=== PATIENT | female | born 1935 | race Caucasian/White ===

== ENCOUNTER 2017-03-20 09:18 | Outpatient (CLI) | payer MEDICARE, OTHER ==
[2017-03-20 09:56] LABS: BASOPHILS % (AUTO) 0.7 %; EOSINOPHILS # (AUTO) 0.2 10^3/uL (0.0-0.7); EOSINOPHILS % (AUTO) 3.8 %; HCT - HEMATOCRIT 38.1 % (37.0-47.0); HGB - HEMOGLOBIN 12.9 g/dL (12.0-16.0); LYMPHOCYTES # (AUTO) 1.4 10^3/uL (1.5-3.5); MEAN CORPUSCULAR HEMOGLOBIN 29.4 pg (27.0-31.0); MEAN CORPUSCULAR HGB CONC 33.8 g/dL (32.0-36.0); MEAN CORPUSCULAR VOLUME 86.9 fL (81.0-99.0); MEAN PLATELET VOLUME 8.5 fL (7.9-10.8); MONOCYTES # (AUTO) 0.3 10^3/uL (0.0-1.0); MONOCYTES % (AUTO) 6.8 %; NEUTROPHILS # (AUTO) 3.1 10^3/uL (1.5-6.6); NEUTROPHILS % (AUTO) 61.7 %; RED BLOOD COUNT 4.38 10^6/uL (4.20-5.40); RED CELL DISTRIBUTION WIDTH 14.8 % (12.0-15.0)
[2017-03-20 10:16] LABS: ALBUMIN/GLOBULIN RATIO 1.7 (1.0-2.2); BILIRUBIN,TOTAL 0.8 mg/dL (0.2-1.0); BUN - BLOOD UREA NITROGEN 18 mg/dL (6-20); CALCIUM 9.2 mg/dL (8.5-10.3); CARBON DIOXIDE - CO2 32 mmol/L (21-32); CHLORIDE 103 mmol/L (101-111); CHOL/HDL RATIO 3.1 (<4.4); CHOLESTEROL 244 mg/dL; CREATININE 0.6 mg/dL (0.4-1.0); GFR - MDRD 95 (>89); GLUCOSE 101 mg/dL (70-100); HDL CHOLESTEROL 80 mg/dL; LDL/HDL RATIO 1.9 (<4.4); SODIUM 141 mmol/L (135-145); TOTAL PROTEIN 6.7 g/dL (6.7-8.2); TRIGLYCERIDES 62 mg/dL; VLDL CHOLESTEROL 12 mg/dL
[2017-03-20 10:17] LABS: HEMOGLOBIN A1C 0.56 g/dL
[2017-03-20 10:17] LABS: BILIRUBIN,URINE NEGATIVE (NEGATIVE); PH,URINE 7.5 PH (5.0-7.5)
[2017-03-20 10:26] LABS: UR CULTURE IF IND NOT INDICATED
[2017-03-20 11:21] LABS: FOLATE 19.73 ng/mL (5.90 - >24.8)
[2017-03-20 11:29] LABS: THYROID STIMULATING HORMONE 0.94 uIU/mL (0.34-5.60)
[2017-03-22 10:48] LABS: HOMOCYSTEINE 9.6 umol/L (<10.4)
== END 2017-03-20 09:19 | disposition home or self-care (01) ==
LOC: LAB 09:18
PROVIDERS: ATTEND Internal Medicine
DX: R20.0 Anesthesia of skin (principal); I10 Essential (primary) hypertension; E78.5 Hyperlipidemia, unspecified; R73.9 Hyperglycemia, unspecified; I48.0 Paroxysmal atrial fibrillation; Z79.899 Other long term (current) drug therapy
CPT/HCPCS: 36415; 80053; 80061; 81001; 82607; 82746; 83036; 83090; 83921; 84443; 85025; 87086

== ENCOUNTER 2017-05-07 11:14 | Outpatient (CLI) | payer MEDICARE, OTHER ==
--- NOTE | 2017-05-08 09:46 | Ultrasound Report ---
ULTRASOUND OF THE NECK: 05/07/2017 CLINICAL HISTORY: This is an 81-year-old female who has a visible and palpable lump at the top of he r left jaw line at the base of the left ear. TECHNIQUE: Real-time scanning was performed with labor relations representative static images obtained. FINDINGS: A 3.24 x 1.69 x 2.95 cm oval-shaped solid mass is noted in the area of concern with associ ated mild vascular flow. Primary consideration for the finding is an enlarged malignant lymph node. Recommend this mass undergo needle aspiration and/or core biopsy under ultrasound guidance for furth er evaluation. Specimen should be placed in RPMI for flow cytometry and formalin for core biopsies a nd cytospin/Carbowax solution for needle aspiration biopsies. IMPRESSION: A 3.24 X 1.69 X 2.95 CM OVAL-SHAPED SOLID MASS IS NOTED AT THE TOP OF THE LEFT JAWLINE A T THE BASE OF THE LEFT EAR. THIS MASS HAS CHARACTERISTICS CONSISTENT WITH A MALIGNANT LYMPH NODE, EI THER LYMPHOMA OR METASTATIC SQUAMOUS CELL CARCINOMA. RECOMMEND NEEDLE ASPIRATION AND/OR CORE BIOPSY UNDER ULTRASOUND GUIDANCE. JOB #: [id number] EXT JOB #:[id number]
== END 2017-05-07 11:15 | disposition home or self-care (01) ==
LOC: DI 11:14
PROVIDERS: ATTEND Internal Medicine
DX: R22.9 Localized swelling, mass and lump, unspecified (principal)
CPT/HCPCS: 76536

== ENCOUNTER 2017-05-08 09:39 | Outpatient (CLI) | payer MEDICARE, OTHER ==
[2017-05-08 10:25] LABS: CALCIUM 9.5 mg/dL (8.5-10.3); CREATININE 0.6 mg/dL (0.4-1.0); POTASSIUM 4.1 mmol/L (3.5-5.0)
== END 2017-05-08 09:40 | disposition home or self-care (01) ==
LOC: LAB 09:39
PROVIDERS: ATTEND Specialist
DX: I35.0 Nonrheumatic aortic (valve) stenosis (principal); I47.1 Supraventricular tachycardia; I34.0 Nonrheumatic mitral (valve) insufficiency; I10 Essential (primary) hypertension; E78.5 Hyperlipidemia, unspecified; I77.89 Other specified disorders of arteries and arterioles; I49.3 Ventricular premature depolarization; R09.89 Other specified symptoms and signs involving the circulatory and respiratory systems; I47.2 Ventricular tachycardia
CPT/HCPCS: 36415; 80048; 83735

== ENCOUNTER 2018-01-08 09:57 | Outpatient (CLI) | payer MEDICARE, OTHER ==
[2018-01-08 10:42] LABS: ALBUMIN 4.2 g/dL (3.2-5.5); ALBUMIN/GLOBULIN RATIO 1.6 (1.0-2.2); ALKALINE PHOSPHATASE 51 IU/L (42-121); ALT ALANINE AMINOTRANSFERASE 21 IU/L (10-60); AST ASPARTATE AMINOTRANSFERASE 28 IU/L (10-42); BUN - BLOOD UREA NITROGEN 18 mg/dL (6-20); CALCIUM 9.2 mg/dL (8.5-10.3); CARBON DIOXIDE - CO2 28 mmol/L (21-32); CHLORIDE 105 mmol/L (101-111); CHOL/HDL RATIO 3.2 (<4.4); CHOLESTEROL 237 mg/dL; CREATININE 0.6 mg/dL (0.4-1.0); GFR - MDRD 95 (>89); GLUCOSE 105 mg/dL (70-100); HDL CHOLESTEROL 75 mg/dL; LDL CHOLESTEROL,CALCULATED 150 mg/dL; SODIUM 140 mmol/L (135-145); TOTAL PROTEIN 6.9 g/dL (6.7-8.2); VLDL CHOLESTEROL 12 mg/dL
== END 2018-01-08 09:58 | disposition home or self-care (01) ==
LOC: LAB 09:57
PROVIDERS: ATTEND Specialist
DX: E78.5 Hyperlipidemia, unspecified (principal); I47.1 Supraventricular tachycardia
CPT/HCPCS: 36415; 80053; 80061; 83721; 83735

== ENCOUNTER 2018-10-17 08:55 | Outpatient (CLI) | payer MEDICARE, OTHER ==
[2018-10-17 09:20] LABS: BASOPHILS # (AUTO) 0.1 10^3/uL (0.0-0.1); BASOPHILS % (AUTO) 0.9 %; EOSINOPHILS # (AUTO) 0.6 10^3/uL (0.0-0.7); EOSINOPHILS % (AUTO) 9.4 %; HGB - HEMOGLOBIN 13.1 g/dL (12.0-16.0); LYMPHOCYTES # (AUTO) 1.5 10^3/uL (1.5-3.5); LYMPHOCYTES % (AUTO) 24.3 %; MEAN CORPUSCULAR HEMOGLOBIN 29.7 pg (27.0-31.0); MEAN CORPUSCULAR HGB CONC 33.9 g/dL (32.0-36.0); MEAN CORPUSCULAR VOLUME 87.6 fL (81.0-99.0); MEAN PLATELET VOLUME 8.1 fL (7.9-10.8); MONOCYTES # (AUTO) 0.4 10^3/uL (0.0-1.0); MONOCYTES % (AUTO) 6.9 %; NEUTROPHILS # (AUTO) 3.6 10^3/uL (1.5-6.6); NEUTROPHILS % (AUTO) 58.5 %; PLT - PLATELET COUNT 249 10^3/uL (130-450); RED BLOOD COUNT 4.41 10^6/uL (4.20-5.40); RED CELL DISTRIBUTION WIDTH 14.2 % (12.0-15.0); WHITE BLOOD COUNT 6.2 x10^3/uL (4.8-10.8)
[2018-10-17 09:45] LABS: ALBUMIN 3.8 g/dL (3.2-5.5); ALBUMIN/GLOBULIN RATIO 1.3 (1.0-2.2); ALKALINE PHOSPHATASE 68 IU/L (42-121); ALT ALANINE AMINOTRANSFERASE 17 IU/L (10-60); AST ASPARTATE AMINOTRANSFERASE 23 IU/L (10-42); BILIRUBIN,TOTAL 0.8 mg/dL (0.2-1.0); BUN - BLOOD UREA NITROGEN 19 mg/dL (6-20); CARBON DIOXIDE - CO2 30 mmol/L (21-32); CHLORIDE 103 mmol/L (101-111); CHOL/HDL RATIO 3.2 (<4.4); CHOLESTEROL 225 mg/dL; CREATININE 0.7 mg/dL (0.4-1.0); GFR - MDRD 80 (>89); GLUCOSE 105 mg/dL (70-100); HB2 TOTAL 13.7 g/dL; HDL CHOLESTEROL 71 mg/dL; HEMOGLOBIN A1C 0.55 g/dL; HEMOGLOBIN A1C % 5.8 % (4.6-6.2); LDL CHOLESTEROL,CALCULATED 143 mg/dL; SODIUM 139 mmol/L (135-145); TOTAL PROTEIN 6.8 g/dL (6.7-8.2); VLDL CHOLESTEROL 11 mg/dL
[2018-10-17 10:21] LABS: BILIRUBIN,URINE NEGATIVE (NEGATIVE); GLUCOSE, URINE (UA) NEGATIVE (NEGATIVE); KETONES,URINE (UA) NEGATIVE (NEGATIVE); LEUKOCYTE ESTERASE, URINE MODERATE (NEGATIVE); NITRITE,URINE POSITIVE (NEGATIVE); OCCULT BLOOD,URINE TRACE-INTA (NEGATIVE); PH,URINE 6.5 PH (5.0-7.5); PROTEIN,URINE NEGATIVE (NEGATIVE); UROBILINOGEN,URINE 0.2 (NORMAL) E.U./dL (NORMAL)
[2018-10-17 10:23] LABS: CLARITY,URINE HAZY (CLEAR)
[2018-10-17 10:36] LABS: THYROID STIMULATING HORMONE 0.65 uIU/mL (0.34-5.60)
[2018-10-17 10:45] LABS: BACTERIA,URINE Many /HPF (None Seen); RBC,URINE 0-5 /HPF (0-5); SQUAMOUS EPITHELIAL CELL,UR FEW Squamous (<= Few)
== END 2018-10-17 08:56 | disposition home or self-care (01) ==
LOC: LAB 08:55
PROVIDERS: ATTEND Internal Medicine
DX: R53.83 Other fatigue (principal); E78.5 Hyperlipidemia, unspecified; R20.2 Paresthesia of skin; Z79.899 Other long term (current) drug therapy; E78.2 Mixed hyperlipidemia; I10 Essential (primary) hypertension; I25.10 Atherosclerotic heart disease of native coronary artery without angina pectoris; I47.1 Supraventricular tachycardia; R73.9 Hyperglycemia, unspecified
CPT/HCPCS: 36415; 80053; 80061; 81001; 82607; 83036; 83721; 83735; 84443; 85025; 87077; 87086; 87181

== ENCOUNTER 2018-10-30 12:23 | Outpatient (CLI) | payer MEDICARE, OTHER ==
--- NOTE | 2018-10-30 13:37 | XRAY Report ---
Reason: FOUSH 10/29/17,TENDER DISTAL ULNA Procedure Date: 10/30/2018 Accession Number: [id number] / [id number] Procedure: XR - Forearm LT CPT Code: FULL RESULT: EXAM: LEFT FOREARM RADIOGRAPHY EXAM DATE: 10/30/2018 01:14 PM. CLINICAL HISTORY: Fall on outstretched hand 10/29/17, tender distal ulna. COMPARISON: None. TECHNIQUE: 2 views. FINDINGS: Bones: Normal. No fractures or bone lesions. Joints: Normal. No effusions or subluxations in the visualized wrist or elbow joints. Soft Tissues: Normal. No soft tissue swelling. IMPRESSION: No fracture or dislocation. RADIA
--- NOTE | 2018-10-30 13:52 | XRAY Report ---
Reason: FOUSH 10/29/17,TENDER DISTAL ULNA Procedure Date: 10/30/2018 Accession Number: [id number] / [id number] Procedure: XR - Hand 3 View LT CPT Code: FULL RESULT: EXAM: LEFT HAND RADIOGRAPHY EXAM DATE: 10/30/2018 01:14 PM. CLINICAL HISTORY: FOOSH 10/29/17,tender distal ulna. COMPARISON: None. TECHNIQUE: 3 views. FINDINGS: Bones: Normal. No fractures or bone lesions. Joints: Normal. No subluxations. Soft Tissues: Normal. No soft tissue swelling. IMPRESSION: No fracture or dislocation is seen. RADIA
== END 2018-10-30 12:24 | disposition home or self-care (01) ==
LOC: DI 12:23
PROVIDERS: ATTEND Family Medicine
DX: M25.532 Pain in left wrist (principal); M79.632 Pain in left forearm

== ENCOUNTER 2019-03-18 09:29 | Outpatient (CLI) | payer MEDICARE, OTHER ==
[2019-03-18 10:06] LABS: ALBUMIN/GLOBULIN RATIO 1.5 (1.0-2.2); CALCIUM 9.3 mg/dL (8.5-10.3); CREATININE 0.6 mg/dL (0.4-1.0); TOTAL PROTEIN 6.7 g/dL (6.7-8.2)
== END 2019-03-18 09:30 | disposition home or self-care (01) ==
LOC: LAB 09:29
PROVIDERS: ATTEND Specialist
DX: I42.9 Cardiomyopathy, unspecified (principal)
CPT/HCPCS: 36415; 80053

== ENCOUNTER 2019-09-22 09:00 | Outpatient (CLI) | payer MEDICARE, OTHER ==
[2019-09-22 09:46] LABS: CALCIUM 9.3 mg/dL (8.5-10.3); CREATININE 0.6 mg/dL (0.4-1.0); MAGNESIUM 2.1 mg/dL (1.7-2.8)
[2019-09-22 10:47] LABS: THYROID STIMULATING HORMONE 0.58 uIU/mL (0.34-5.60)
[2019-09-22 10:56] LABS: HB2 TOTAL 13.7 g/dL; HEMOGLOBIN A1C 0.59 g/dL; HEMOGLOBIN A1C % 6.1 % (4.6-6.2)
== END 2019-09-22 09:01 | disposition home or self-care (01) ==
LOC: LAB 09:00
PROVIDERS: ATTEND Specialist
DX: I47.1 Supraventricular tachycardia (principal); I10 Essential (primary) hypertension; R73.9 Hyperglycemia, unspecified; R20.0 Anesthesia of skin; R68.89 Other general symptoms and signs
CPT/HCPCS: 36415; 80048; 82607; 83036; 83735; 84443

== ENCOUNTER 2020-03-03 09:03 | Outpatient (CLI) | payer MEDICARE, OTHER ==
[2020-03-03 09:29] LABS: CREATININE 0.7 mg/dL (0.4-1.0)
== END 2020-03-03 09:04 | disposition home or self-care (01) ==
LOC: LAB 09:03
PROVIDERS: ATTEND Internal Medicine
DX: Z79.899 Other long term (current) drug therapy (principal)
CPT/HCPCS: 36415; 82565

== ENCOUNTER 2020-03-23 09:11 | Outpatient (CLI) | payer MEDICARE, OTHER ==
[2020-03-23 10:12] LABS: ALBUMIN/GLOBULIN RATIO 1.5 (1.0-2.2); BILIRUBIN,TOTAL 0.8 mg/dL (0.2-1.0); CALCIUM 9.1 mg/dL (8.5-10.3); CREATININE 0.7 mg/dL (0.4-1.0); MAGNESIUM 2.2 mg/dL (1.7-2.8); TOTAL PROTEIN 6.7 g/dL (6.7-8.2)
== END 2020-03-23 09:12 | disposition home or self-care (01) ==
LOC: LAB 09:11
PROVIDERS: ATTEND Specialist
DX: I42.9 Cardiomyopathy, unspecified (principal); I10 Essential (primary) hypertension; I49.3 Ventricular premature depolarization
CPT/HCPCS: 36415; 80053; 83735

== ENCOUNTER 2020-06-23 15:02 | Emergency (ER) | payer MEDICARE, OTHER ==
[2020-06-23 15:38] LABS: BASOPHILS % (AUTO) 0.4 %; EOSINOPHILS % (AUTO) 0.2 %; HGB - HEMOGLOBIN 12.7 g/dL (12.0-16.0); LYMPHOCYTES # (AUTO) 1.2 10^3/uL (1.5-3.5); LYMPHOCYTES % (AUTO) 13.4 %; MEAN CORPUSCULAR HEMOGLOBIN 29.8 pg (27.0-31.0); MEAN CORPUSCULAR HGB CONC 32.8 g/dL (32.0-36.0); MEAN CORPUSCULAR VOLUME 90.8 fL (81.0-99.0); MEAN PLATELET VOLUME 10.6 fL (7.9-10.8); MONOCYTES % (AUTO) 10.9 %; NEUTROPHILS # (AUTO) 6.7 10^3/uL (1.5-6.6); NEUTROPHILS % (AUTO) 74.9 %; PLT - PLATELET COUNT 208 10^3/uL (130-450); RED BLOOD COUNT 4.26 10^6/uL (4.20-5.40); RED CELL DISTRIBUTION WIDTH 13.6 % (12.0-15.0); WHITE BLOOD COUNT 8.9 x10^3/uL (4.8-10.8)
[2020-06-23 15:49] LABS: ALBUMIN 3.9 g/dL (3.2-5.5); ALBUMIN/GLOBULIN RATIO 1.3 (1.0-2.2); BILIRUBIN,TOTAL 0.9 mg/dL (0.2-1.0); CALCIUM 9.1 mg/dL (8.5-10.3); CREATININE 0.6 mg/dL (0.4-1.0)
--- NOTE | 2020-06-23 16:12 | ED Physician Documentation ---
PD HPI DYSPNEA - Stated complaint Stated Complaint: MUSCLE SPASM/RAPID PULSE - Chief complaint Chief Complaint: Cardiac - History obtained from History obtained from: Patient - Additional information Additional information: Patient comes emergency department complaining of pain in her neck that today is on the left side. She states she has been having tightness and pain for several days now and that it sometimes is on both sides and sometimes 1 side or the other. She states that it seems to be right over her sternocleidomastoid muscle, which she names by name, and that it feels painful when she turns her head from side to side. No pain in the spine itself. Patient also notes some muscular type pain in her upper back. No chest pain or shortness of breath. She states that sometimes the pain sensation goes down her arm. Patient has noticed that her heart seems to be beating faster than usual today. She does not know what kind of pacemaker she has, though it is for refractory atrial f ibrillation. Patient states that she has had many many cardioversions over time, followed by a failed ablation, and finally, pacemaker placement. She states that within the last week, she did have the batteries replaced on her pacer. No other complaints at this time. Review of Systems Ten Systems: 10 systems reviewed and negative Constitutional: reports: Reviewed and negative Eyes: reports: Reviewed and negative Ears: reports: Reviewed and negative Nose: reports: Reviewed and negative Throat: reports: Reviewed and negative Cardiac: reports: Reviewed and negative. denies: Chest pain / pressure Respiratory: reports: Reviewed and negative. denies: Dyspnea GI: reports: Reviewed and negative : reports: Reviewed and negative Skin: reports: Reviewed and negative Musculoskeletal: reports: Neck pain Neurologic: reports: Reviewed and negative Psychiatric: reports: Reviewed and negative Endocrine: reports: Reviewed and negative Immunocompromised: reports: Reviewed and negative PD PAST MEDICAL HISTORY - Present Medications Home Medications: Ambulatory Orders Medication Instructions Recorded Confirmed Cyclobenzaprine [Flexeril] 10 mg PO TID PRN #20 tablet 06/23/20 HYDROcod/ACETAM 5/325 [Poneto 5/325] 1 - 2 ea PO Q6H PRN #15 tablet 06/23/20 - Allergies Allergies/Adverse Reactions: Allergies Allergy/AdvReac Type Severity Reaction Status Date / Time Penicillins Allergy Unknown Verified 06/23/20 15:22 PD ED PE NORMAL - Vitals Vital signs reviewed: Yes - General General: Alert and oriented X 3, No acute distress, Well developed/nourished - HEENT HEENT: Atraumatic, PERRL, EOMI - Neck Neck: Supple, no meningeal sign, Other (tenderness over the L SCM, with tightness. Some tenderness over L trapezius.) - Cardiac Cardiac: RRR (tachycardic), Strong equal pulses, Other (2/6 systolic murmur) - Respiratory Respiratory: No respiratory distress, Clear bilaterally - Abdomen Abdomen: Soft, Non tender, Non distended - Back Back: No CVA TTP - Derm Derm: Normal color, Warm and dry, No rash - Extremities Extremities: No deformity, No edema, No calf tenderness / cord - Neuro Neuro: Alert and oriented X 3 - Psych Psych: Normal mood, Normal affect Results - Vitals Vitals: Oxygen O2 Source Room air - EKG (time done) 1517 Rate: Rate (enter#) (110) Rhythm: Paced - Labs Labs: Laboratory Tests 06/23/20 06/23/20 06/23/20 15:30 15:30 15:30 WBC 8.9 RBC 4.26 Hgb 12.7 Hct 38.7 MCV 90.8 MCH 29.8 MCHC 32.8 RDW 13.6 Plt Count 208 MPV 10.6 Neut # (Auto) 6.7 H Lymph # (Auto) 1.2 L [place] # (Auto) 1.0 Eos # (Auto) 0.0 Baso # (Auto) 0.0 Absolute Nucleated RBC 0.00 Nucleated RBC % 0.0 Sodium 137 Potassium 3.9 Chloride 99 L Carbon Dioxide 29 Anion Gap 9.0 BUN 21 H Creatinine 0.6 Estimated GFR (MDRD) 95 Glucose 144 H Calcium 9.1 Total Bilirubin 0.9 AST 18 ALT 15 Alkaline Phosphatase 62 Troponin I High Sens 87.7 H* Total Protein 7.0 Albumin 3.9 Globulin 3.1 Albumin/Globulin Ratio 1.3 Lipase 28 06/23/20 17:20 WBC RBC Hgb Hct MCV MCH MCHC RDW Plt Count MPV Neut # (Auto) Lymph # (Auto) [place] # (Auto) Eos # (Auto) Baso # (Auto) Absolute Nucleated RBC Nucleated RBC % Sodium Potassium Chloride Carbon Dioxide Anion Gap BUN Creatinine Estimated GFR (MDRD) Glucose Calcium Total Bilirubin AST ALT Alkaline Phosphatase Troponin I High Sens 86.5 H* Total Protein Albumin Globulin Albumin/Globulin Ratio Lipase - Rads (name of study) CXR Radiology: Final report received, EMP read indepedently, See rad report (cardiomegaly, pacer in place, ) PD MEDICAL DECISION MAKING - ED course Complexity details: reviewed old records, reviewed results, re-evaluated patient, considered differential, d/w patient, d/w family ED course: The pt had only musculoskeletal complaints, and was without chest pain or dyspnea. She was very well-appearing. Her rhythm was clearly paced, but tachycardic in the 110's, though this did improve after pt received symptomatic treatment. EKG showed a paced, mildly tachycardic rhythm. Labs were unremarkable, except for for a significantly elevated troponin. I discussed the case with Dr. Rajput, who was licensing and registration director for the pt's director of premium seat sales's group. We discussed the findings, including troponin and the paced tachycardia, and he reviewed the pt's chart. He felt that the patient's pacemaker was most likely functioning properly, but recommended an interrogation to be sure. We discussed the elevated troponin, and he stated that based on the pt's history, both here and in their records, he did not feel that this represented an SD. Dr. Rajput recommended a repeat troponin, after which, if not found to be more elevated from the original level, the pt could be cleared from this standpoint. I discussed this with the pt, who was feeling much better, and whose heart rate had normalized, and she was agreeable to the plan. Interrogation revealed a properly functioning pacemaker, with an upper heart rate limit of 130, and repeat troponin was slightly lower than the first. I felt pt was stable for d/c home. We have discussed home management of the symptoms, as well as the need for follow up and the usual indications for return. Departure - Departure Disposition: 01 Home, Self Care Clinical Impression: Neck muscle spasm, Tachycardia Condition: Stable Instructions: ED Spasm Neck No Injury Prescriptions: Cyclobenzaprine [Flexeril] 10 mg PO TID PRN #20 tablet PRN Reason: Spasms HYDROcod/ACETAM 5/325 [Poneto 5/325] 1 - 2 ea PO Q6H PRN #15 tablet PRN Reason: Pain Comments: Your case has been discussed with Dr. Dumont, the on-call director of premium seat sales from Dr. Chacko's group. We have reviewed your Paced heart rate and your labs. At his request, we did interrogate your pacemaker and it does appear to be functioning properly according to the settings. As we have discussed, there is a range of 60 to 130 bpm which is considered within the pacemakers range of normal function. Patient your cardiac enzymes were elevated, and this was also discussed with Dr. Dumont. He felt that given the lack of typical symptoms, that this was unlikely to be meaningful. We repeated the level 2 see if it was rising significantly and it is actually very slightly lower than the first level. At this point in time, it does not appear you have had a heart attack. If you develop chest pain or shortness of breath, you will need to return to the emergency department. Please take the muscle relaxer and your pain medication as needed. You may follow-up with your primary care physician if you continue to have neck spasms. Discharge Date/Time: 06/23/20 18:35
--- NOTE | 2020-06-23 16:17 | XRAY Report ---
PROCEDURE: Chest 1 View X-Ray INDICATIONS: Chest pain TECHNIQUE: One view of the chest was acquired. COMPARISON: None FINDINGS: Surgical changes and devices: EKG leads project over the chest. 2-lead left chest wall cardiac pacing device noted. Lungs and pleura: There is a spherical approximately 1.4 cm density projecting over the inferior righ t lung, corresponding approximately in position to an area of overlap of the 2 EKG leads in this loca tion. This could represent artifact or potentially a nipple shadow, although a lung nodule cannot be excluded. The lungs are otherwise clear. No pleural effusion or pneumothorax. Mediastinum: Mediastinal contours appear normal. Heart size is enlarged. Bones and chest wall: No s uspicious bony lesions. Overlying soft tissues appear unremarkable. IMPRESSION: Enlarged heart size with 2-lead cardiac pacing device in place. Possible inferior right lung lung nodule. Repeat examination without EKG leads obscuring this region is recommended, which can be performed on a nonemergent outpatient basis. Correlation with any prior outside studies also be helpful if available. Alternatively, CT exam could be obtained. Reviewed by: Jorge Russell MD on 06/23/2020 4:15 PM PDT Approved by: Jorge Russell MD on 06/23/2020 4:15 PM PDT Station ID: [id number]
[2020-06-23] MEDS ORDERED: HYDROmorphone 1 MG/ML CARPUJECT IVP STA (16:52)
[2020-06-23] MEDS ORDERED: KETOROLAC 30 MG/ML VIAL IVP STA (16:52)
[2020-06-23 18:12] VITALS: BP 129/84
== END 2020-06-23 18:35 | disposition home or self-care (01) ==
LOC: ED 15:02
DX: M62.838 Other muscle spasm (principal); M54.2 Cervicalgia; M54.6 Pain in thoracic spine; R00.0 Tachycardia, unspecified; R79.89 Other specified abnormal findings of blood chemistry; Z95.0 Presence of cardiac pacemaker
CPT/HCPCS: 36415; 71045; 80053; 83690; 84484; 85025; 93005; 96374; 99284; J1170

== ENCOUNTER 2021-01-10 09:38 | Outpatient (CLI) | payer MEDICARE, OTHER ==
[2021-01-10 09:57] LABS: BASOPHILS % (AUTO) 0.8 %; EOSINOPHILS # (AUTO) 0.2 10^3/uL (0.0-0.7); EOSINOPHILS % (AUTO) 3.2 %; HCT - HEMATOCRIT 34.7 % (37.0-47.0); HGB - HEMOGLOBIN 10.9 g/dL (12.0-16.0); LYMPHOCYTES # (AUTO) 1.3 10^3/uL (1.5-3.5); LYMPHOCYTES % (AUTO) 24.3 %; MEAN CORPUSCULAR HEMOGLOBIN 30.4 pg (27.0-31.0); MEAN CORPUSCULAR HGB CONC 31.4 g/dL (32.0-36.0); MEAN CORPUSCULAR VOLUME 96.9 fL (81.0-99.0); MEAN PLATELET VOLUME 11.4 fL (7.9-10.8); MONOCYTES # (AUTO) 0.4 10^3/uL (0.0-1.0); MONOCYTES % (AUTO) 8.2 %; NEUTROPHILS # (AUTO) 3.3 10^3/uL (1.5-6.6); NEUTROPHILS % (AUTO) 63.3 %; PLT - PLATELET COUNT 184 10^3/uL (130-450); RED BLOOD COUNT 3.58 10^6/uL (4.20-5.40); RED CELL DISTRIBUTION WIDTH 15.4 % (12.0-15.0); WHITE BLOOD COUNT 5.3 x10^3/uL (4.8-10.8)
[2021-01-10 10:09] LABS: ALBUMIN 4.5 g/dL (3.2-5.5); ALBUMIN/GLOBULIN RATIO 1.9 (1.0-2.2); BILIRUBIN,TOTAL 0.9 mg/dL (0.2-1.0); CALCIUM 9.7 mg/dL (8.5-10.3); CREATININE 0.5 mg/dL (0.4-1.0); TOTAL PROTEIN 6.9 g/dL (6.7-8.2)
[2021-01-10 10:26] LABS: THYROID STIMULATING HORMONE 0.67 uIU/mL (0.34-5.60)
[2021-01-10 12:49] LABS: ESTIMATED AVERAGE GLUCOSE 85 mg/dL (70-100); HEMOGLOBIN A1c% 4.6 % (4.27-6.07)
== END 2021-01-10 09:39 | disposition home or self-care (01) ==
LOC: LAB 09:38
PROVIDERS: ATTEND Specialist
DX: I10 Essential (primary) hypertension (principal); R53.1 Weakness; R53.83 Other fatigue; R20.8 Other disturbances of skin sensation; C50.919 Malignant neoplasm of unspecified site of unspecified female breast; C80.1 Malignant (primary) neoplasm, unspecified; C44.91 Basal cell carcinoma of skin, unspecified; R73.9 Hyperglycemia, unspecified; E55.9 Vitamin D deficiency, unspecified
CPT/HCPCS: 36415; 80053; 82306; 82607; 83036; 83735; 84443; 85025

== ENCOUNTER 2021-01-25 12:00 | Outpatient (CLI) | payer MEDICARE, OTHER ==
--- NOTE | 2021-01-25 14:10 | CT Report ---
PROCEDURE: LUMBAR SPINE WO INDICATIONS: LEG WEAKNESS TECHNIQUE: Noncontrast 3 mm thick sections acquired from the T12 level to the sacrum. Sagittal and coronal refo rmats were constructed. For radiation dose reduction, the following was used: automated exposure co ntrol, adjustment of mA and/or kV according to patient size. COMPARISON: None. FINDINGS: Image quality: Excellent. Bones: There is normal bony alignment. Mild convex left curvature of the lumbar spine. Loss of heigh t noted in T12 L1 vertebral body compatible with chronic-appearing vertebral body compression fractur es. No acute vertebral body compression fractures. No suspicious lytic or blastic bony lesions. Endp late sclerosis compatible with chronic reactive changes noted adjacent to the L1-L2, L2-L3, L3-L4 and L5-S1 discs. No pars defects. T12-L1: Disc height is normal. Mild, diffuse disc bulge. Mild bilateral facet hypertrophy. No centra l stenosis. No neural foraminal narrowing. No neural compression. L1-L2: Loss of disc height. Mild to moderate diffuse disc bulge. Mild bilateral facet hypertrophy. Mild ligamentum flavum hypertrophy. Wpux-ao-lfpltdob narrowing of the central canal. Moderate right and mild left neural foraminal narrowing. No neural compression. L2-L3: Loss of disc height. Mild to moderate diffuse disc bulge. Mild bilateral facet hypertrophy. Moderate ligamentum flavum hypertrophy. Moderate to severe narrowing of the central canal. Severe ri ght and moderate left neural foraminal narrowing with compression of the exiting right L2 nerve root. L3-L4: Mild loss of disc height. Mild, diffuse disc bulge. Mild to moderate bilateral facet hypertr ophy. Moderate ligamentum flavum protrusion. Severe narrowing of the central canal. Moderate bilatera l neural foraminal narrowing. L4-L5: Disc height is normal. Mild, diffuse disc bulge. Mild bilateral separately. Mild narrowing of the central canal. Mild to moderate bilateral neural foraminal narrowing. No neural compression L5-S1: Loss of disc height. Mild, diffuse disc bulge. Mild bilateral facet hypertrophy. No central stenosis. Moderate right and moderate to severe left neural foraminal narrowing with slight compressi on of the exiting left L5 nerve root. Soft tissues: No retroperitoneal masses or hematomas. Visualized aorta is normal in caliber. Large right renal cysts. Scattered atherosclerotic calcifications are noted in the visualized abdominal an d pelvic vasculature. Cardiac pacer leads partially visualized. IMPRESSION: 1. Chronic-appearing T12 and L1 compression fractures. No acute vertebral body compression fracture i dentified. 2. Multilevel degenerative disc disease. 3. Multilevel facet arthropathy. 4. Severe L3-L4 central canal narrowing. Moderate to severe L2-L3 central canal narrowing 5. Severe right L2-L3 neural foraminal narrowing. Moderate to severe left L5-S1 neural foraminal narr owing. Reviewed by: Valeria Goldman MD, PhD on 01/25/2021 2:08 PM PDT Approved by: Valeria Goldman MD, PhD on 01/25/2021 2:08 PM PDT Station ID: [id number]
== END 2021-01-25 12:01 | disposition home or self-care (01) ==
LOC: DI 12:00
PROVIDERS: ATTEND Internal Medicine
DX: M47.815 Spondylosis without myelopathy or radiculopathy, thoracolumbar region (principal); M47.816 Spondylosis without myelopathy or radiculopathy, lumbar region; M48.061 Spinal stenosis, lumbar region without neurogenic claudication; M51.36 Other intervertebral disc degeneration, lumbar region; M47.817 Spondylosis without myelopathy or radiculopathy, lumbosacral region; M51.37 Other intervertebral disc degeneration, lumbosacral region; M48.07 Spinal stenosis, lumbosacral region

== ENCOUNTER 2021-02-21 15:50 | Outpatient (CLI) | payer MEDICARE, OTHER ==
--- NOTE | 2021-02-22 09:25 | Ultrasound Report ---
PROCEDURE: Duplex Lwr Ext Arterial LT INDICATIONS: CLAUDICATION, COLD FEET TECHNIQUE: Color and pulse Doppler interrogation was performed of the lower extremity arterial system, with image documentation. COMPARISON: No prior vascular ultrasound. FINDINGS: Common femoral artery: 58.9 cm/sec, with triphasic flow. Deep femoral artery: 39.3 cm/sec, with biphasic/monophasic flow. Proximal superficial femoral artery: 47.6 cm/sec, with triphasic flow. Mid superficial femoral artery: 54.4 cm/sec, with triphasic flow. Distal superficial femoral artery: 8.8 cm/sec, with triphasic flow. Popliteal artery: 32.8 cm/sec, with biphasic/monophasic flow. Posterior tibial artery: 58.1 cm/sec, with biphasic/monophasic flow. Anterior tibial artery/dorsalis pedis: Anterior tibial artery 341.7 cm/sec, with biphasic/monophasic flow. Dorsalis pedis artery Anderson-scale imaging description: A combination of calcific and soft plaque is present along the lower extremity arterial vasculature from the popliteal region inferiorly. A high-grade stenosis is presen t within the anterior tibial artery distally, resulting in elevation of the flow velocity in that are a. Two-vessel runoff crosses the ankle into the foot. IMPRESSION: Arterial insufficiency is not present to the popliteal artery but then below this level there is a re duced phasicity of flow and also focal elevation of flow velocity in the the anterior tibial artery d istally indicating high-grade stenosis at that site. MR angiography could be utilized for additional anatomic detail if some form of intervention is anticipated. Reviewed by: Zeeshan Beebe MD on 02/22/2021 9:23 AM PDT Approved by: Zeeshan Beebe MD on 02/22/2021 9:23 AM PDT Station ID: [id number]
== END 2021-02-21 15:51 | disposition home or self-care (01) ==
LOC: DI 15:50
PROVIDERS: ATTEND Internal Medicine
DX: I70.212 Atherosclerosis of native arteries of extremities with intermittent claudication, left leg (principal); R20.9 Unspecified disturbances of skin sensation

== ENCOUNTER 2021-07-05 09:05 | Outpatient (CLI) | payer MEDICARE, OTHER ==
[2021-07-05 09:33] LABS: ALBUMIN 4.4 g/dL (3.2-5.5); ALBUMIN/GLOBULIN RATIO 1.6 (1.0-2.2); BILIRUBIN,TOTAL 1.2 mg/dL (0.2-1.0); CALCIUM 9.6 mg/dL (8.5-10.3); CREATININE 0.6 mg/dL (0.4-1.0); MAGNESIUM 2.2 mg/dL (1.7-2.8); POTASSIUM 4.2 mmol/L (3.5-5.0); TOTAL PROTEIN 7.1 g/dL (6.7-8.2)
== END 2021-07-05 09:06 | disposition home or self-care (01) ==
LOC: LAB 09:05
PROVIDERS: ATTEND Specialist
DX: I42.0 Dilated cardiomyopathy (principal); R00.2 Palpitations; I10 Essential (primary) hypertension; I48.0 Paroxysmal atrial fibrillation
CPT/HCPCS: 36415; 80053; 83735

== ENCOUNTER 2021-10-24 08:41 | Outpatient (CLI) | payer MEDICARE, OTHER ==
[2021-10-24 09:31] LABS: ALBUMIN 3.8 g/dL (3.2-5.5); ALBUMIN/GLOBULIN RATIO 1.7 (1.0-2.2); ALKALINE PHOSPHATASE 61 IU/L (42-121); ALT ALANINE AMINOTRANSFERASE 30 IU/L (10-60); AST ASPARTATE AMINOTRANSFERASE 27 IU/L (10-42); BILIRUBIN,TOTAL 0.8 mg/dL (0.2-1.0); BUN - BLOOD UREA NITROGEN 20 mg/dL (6-20); CALCIUM 9.1 mg/dL (8.5-10.3); CARBON DIOXIDE - CO2 29 mmol/L (21-32); CHLORIDE 104 mmol/L (101-111); CHOL/HDL RATIO 3.8 (<4.4); CHOLESTEROL 209 mg/dL; CREATININE 0.5 mg/dL (0.4-1.0); GFR - MDRD 116 (>89); GLUCOSE 110 mg/dL (70-100); HDL CHOLESTEROL 55 mg/dL; LDL CHOLESTEROL,CALCULATED 140 mg/dL; LDL/HDL RATIO 2.5 (<4.4); MAGNESIUM 2.1 mg/dL (1.7-2.8); POTASSIUM 4.1 mmol/L (3.5-5.0); SODIUM 141 mmol/L (135-145); TOTAL PROTEIN 6.1 g/dL (6.7-8.2); TRIGLYCERIDES 69 mg/dL; VLDL CHOLESTEROL 14 mg/dL
== END 2021-10-24 08:42 | disposition home or self-care (01) ==
LOC: LAB 08:41
PROVIDERS: ATTEND Specialist
DX: E78.2 Mixed hyperlipidemia (principal); I48.0 Paroxysmal atrial fibrillation
CPT/HCPCS: 36415; 80053; 80061; 83721; 83735

== ENCOUNTER 2021-12-19 10:25 | Outpatient (CLI) | payer MEDICARE, OTHER ==
[2021-12-19 10:49] LABS: CALCIUM 9.4 mg/dL (8.5-10.3); CREATININE 0.8 mg/dL (0.4-1.0); POTASSIUM 4.3 mmol/L (3.5-5.0)
== END 2021-12-19 10:26 | disposition home or self-care (01) ==
LOC: LAB 10:25
PROVIDERS: ATTEND Specialist
DX: I48.0 Paroxysmal atrial fibrillation (principal)
CPT/HCPCS: 36415; 80048; 83735

== ENCOUNTER 2022-02-02 08:00 | Outpatient (CLI) | payer MEDICARE, OTHER ==
[2022-02-02 13:51] LABS: BASOPHILS % (AUTO) 0.6 %; EOSINOPHILS # (AUTO) 0.1 10^3/uL (0.0-0.7); EOSINOPHILS % (AUTO) 1.9 %; HCT - HEMATOCRIT 40.4 % (37.0-47.0); HGB - HEMOGLOBIN 12.9 g/dL (12.0-16.0); LYMPHOCYTES # (AUTO) 1.6 10^3/uL (1.5-3.5); LYMPHOCYTES % (AUTO) 21.4 %; MEAN CORPUSCULAR HEMOGLOBIN 28.7 pg (27.0-31.0); MEAN CORPUSCULAR HGB CONC 31.9 g/dL (32.0-36.0); MEAN PLATELET VOLUME 10.5 fL (7.9-10.8); MONOCYTES # (AUTO) 0.6 10^3/uL (0.0-1.0); MONOCYTES % (AUTO) 8.3 %; NEUTROPHILS # (AUTO) 4.9 10^3/uL (1.5-6.6); NEUTROPHILS % (AUTO) 67.4 %; PLT - PLATELET COUNT 142 10^3/uL (130-450); RED BLOOD COUNT 4.49 10^6/uL (4.20-5.40); RED CELL DISTRIBUTION WIDTH 15.4 % (12.0-15.0); WHITE BLOOD COUNT 7.3 x10^3/uL (4.8-10.8)
== END 2022-02-02 08:01 | disposition home or self-care (01) ==
LOC: LAB 08:00
PROVIDERS: ATTEND Ophthalmology
DX: H02.403 Unspecified ptosis of bilateral eyelids (principal)
CPT/HCPCS: 36415; 85025; 85651; 86140

== ENCOUNTER 2022-02-16 09:07 | Outpatient (CLI) | payer MEDICARE, OTHER ==
[2022-02-16 09:32] LABS: BILIRUBIN,TOTAL 1.1 mg/dL (0.2-1.0); CALCIUM 9.2 mg/dL (8.5-10.3); CREATININE 0.7 mg/dL (0.4-1.0); POTASSIUM 4.1 mmol/L (3.5-5.0)
== END 2022-02-16 09:08 | disposition home or self-care (01) ==
LOC: LAB 09:07
PROVIDERS: ATTEND Specialist
DX: I10 Essential (primary) hypertension (principal); I48.0 Paroxysmal atrial fibrillation; I42.0 Dilated cardiomyopathy
CPT/HCPCS: 36415; 80053; 83735

== ENCOUNTER 2022-02-18 10:28 | Emergency (ER) | payer MEDICARE, OTHER ==
[2022-02-18 11:09] LABS: BASOPHILS # (AUTO) 0.1 10^3/uL (0.0-0.1); BASOPHILS % (AUTO) 0.8 %; EOSINOPHILS # (AUTO) 0.2 10^3/uL (0.0-0.7); EOSINOPHILS % (AUTO) 2.3 %; HCT - HEMATOCRIT 35.9 % (37.0-47.0); HGB - HEMOGLOBIN 11.7 g/dL (12.0-16.0); LYMPHOCYTES # (AUTO) 1.7 10^3/uL (1.5-3.5); LYMPHOCYTES % (AUTO) 21.6 %; MEAN CORPUSCULAR HEMOGLOBIN 29.5 pg (27.0-31.0); MEAN CORPUSCULAR HGB CONC 32.6 g/dL (32.0-36.0); MEAN CORPUSCULAR VOLUME 90.4 fL (81.0-99.0); MEAN PLATELET VOLUME 9.9 fL (7.9-10.8); MONOCYTES # (AUTO) 0.6 10^3/uL (0.0-1.0); MONOCYTES % (AUTO) 7.2 %; NEUTROPHILS # (AUTO) 5.3 10^3/uL (1.5-6.6); NEUTROPHILS % (AUTO) 67.8 %; PLT - PLATELET COUNT 161 10^3/uL (130-450); RED BLOOD COUNT 3.97 10^6/uL (4.20-5.40); RED CELL DISTRIBUTION WIDTH 15.2 % (12.0-15.0); WHITE BLOOD COUNT 7.8 x10^3/uL (4.8-10.8)
[2022-02-18 11:21] LABS: ALBUMIN/GLOBULIN RATIO 2.2 (1.0-2.2); BILIRUBIN,TOTAL 0.9 mg/dL (0.2-1.0); CREATININE 0.7 mg/dL (0.4-1.0); POTASSIUM 4.6 mmol/L (3.5-5.0); TOTAL PROTEIN 5.8 g/dL (6.7-8.2)
--- NOTE | 2022-02-18 11:41 | ED Physician Documentation ---
History of Present Illness - Stated complaint Stated Complaint: FEMALE - Chief complaint Chief Complaint: Abd Pain - Additonal information Additional information: 86-year-old female presents emergency department for evaluation of rectal b leeding and bloody diarrhea. States that since last night she has had 3 bouts of violeta hematochezia. No history of similar in the past. She does take Xarelto for history of a valve replacement and afib/flutter, though she admits to not taking for 2 days. She does have a pacer in place She denies any fevers, chest pain or shortness of air. No nausea or vomiting. Has some mild abdominal discomfort but no localized pain. Review of Systems Constitutional: denies: Fever, Chills Nose: reports: Reviewed and negative Throat: reports: Reviewed and negative Cardiac: reports: Reviewed and negative Respiratory: reports: Reviewed and negative GI: reports: Bloody / black stool : reports: Reviewed and negative Skin: reports: Reviewed and negative PD PAST MEDICAL HISTORY - Present Medications Home Medications: Ambulatory Orders Medication Instructions Recorded Confirmed Carvedilol [Coreg] 1 tab PO BID 02/18/22 02/18/22 Cholecalciferol (Vitamin D3) 2 cap PO DAILY 02/18/22 02/18/22 [Vitamin D3] Cyanocobalamin (Vitamin B-12) 0 mg PO DAILY 02/18/22 02/18/22 [Vitamin B-12] Cyclosporine [Restasis Multidose] 1 drops OP BID 02/18/22 02/18/22 Furosemide [Lasix] 20 mg PO DAILY 02/18/22 02/18/22 Rivaroxaban [Xarelto] 20 mg PO DAILY 02/18/22 02/18/22 Vit A/Vit C/Vit E/Zinc/Copper 1 each PO DAILY 02/18/22 02/18/22 [Preservision Areds Softgel] lisinopriL [Lisinopril] 1 tab PO BID 02/18/22 02/18/22 - Allergies Allergies/Adverse Reactions: Allergies Allergy/AdvReac Type Severity Reaction Status Date / Time Penicillins Allergy Unknown Verified 02/18/22 10:35 PD ED PE EXPANDED - General General: Alert, No acute distress, Well developed/nourished - Cardiac Cardiac: Regular Rate, Regular Rhythm, Murmur Present - Respiratory Respiratory: Clear to ausultation félix. No: Distress, Labored - Abdomen Abdomen: Normal Bowel sounds, Tender to palpation (Mild left-sided abdominal tenderness without guarding or rebound) - Rectal Rectal: Rn Pediatric present, Other (Violeta copious amount of hematochezia maroon in color) - Back Back: Normal exam. No: Soft tissue tenderness - Derm Derm: Normal color, Warm and dry. No: Rash - Neuro Neuro: Alert and Oriented X 3, CNII-XII intact - GCS Eye Opening: Spontaneous Motor: Obeys Commands Verbal: Oriented Total: 15 Results - Vitals Vitals: Vital Signs - 24 hr 02/18/22 02/18/22 02/18/22 10:36 12:38 13:34 Temperature 36.4 C L Heart Rate 62 67 75 Respiratory 18 26 H 18 Rate Blood Pressure 160/80 H 125/79 116/79 O2 Saturation 95 95 98 02/18/22 15:00 Temperature Heart Rate 62 Respiratory 20 Rate Blood Pressure 124/79 O2 Saturation 99 Oxygen O2 Source Room air - EKG (time done) 1144 Rate: Rate (enter#) (61) Rhythm: Atrial flutter, Atrial fibrillation, Paced Computer interpretation: Agree with computer (paced afib/flutter underlying; no other analysis attempted ) - Labs Labs: Laboratory Tests 02/18/22 02/18/22 02/18/22 11:02 11:02 11:02 WBC 7.8 RBC 3.97 L Hgb 11.7 L Hct 35.9 L MCV 90.4 MCH 29.5 MCHC 32.6 RDW 15.2 H Plt Count 161 MPV 9.9 Neut # (Auto) 5.3 Lymph # (Auto) 1.7 [place] # (Auto) 0.6 Eos # (Auto) 0.2 Baso # (Auto) 0.1 Absolute Nucleated RBC 0.00 Nucleated RBC % 0.0 PT INR Sodium 139 Potassium 4.6 Chloride 100 L Carbon Dioxide 30 Anion Gap 9.0 BUN 33 H Creatinine 0.7 Estimated GFR (MDRD) 79 L Glucose 116 H Lactic Acid Calcium 9.0 Total Bilirubin 0.9 AST 26 ALT 21 Alkaline Phosphatase 45 Total Protein 5.8 L Albumin 4.0 Globulin 1.8 L Albumin/Globulin Ratio 2.2 Lipase 32 Urine Color Urine Clarity Urine pH Ur Specific [place] Urine Protein Urine Glucose (UA) Urine Ketones Urine Occult Blood Urine Nitrite Urine Bilirubin Urine Urobilinogen Ur Leukocyte Esterase Urine RBC Urine WBC Ur Squamous Epith Cells Urine Bacteria Ur Microscopic Review Urine Culture Comments SARS-CoV-2 (PCR) Blood Type Blood Type Recheck A POSITIVE Antibody Screen 02/18/22 02/18/22 02/18/22 11:20 11:45 11:46 WBC RBC Hgb Hct MCV MCH MCHC RDW Plt Count MPV Neut # (Auto) Lymph # (Auto) [place] # (Auto) Eos # (Auto) Baso # (Auto) Absolute Nucleated RBC Nucleated RBC % PT 20.9 H INR 1.9 H Sodium Potassium Chloride Carbon Dioxide Anion Gap BUN Creatinine Estimated GFR (MDRD) Glucose Lactic Acid Calcium Total Bilirubin AST ALT Alkaline Phosphatase Total Protein Albumin Globulin Albumin/Globulin Ratio Lipase Urine Color Urine Clarity Urine pH Ur Specific [place] Urine Protein Urine Glucose (UA) Urine Ketones Urine Occult Blood Urine Nitrite Urine Bilirubin Urine Urobilinogen Ur Leukocyte Esterase Urine RBC Urine WBC Ur Squamous Epith Cells Urine Bacteria Ur Microscopic Review Urine Culture Comments SARS-CoV-2 (PCR) NOT DETECTED Blood Type A POSITIVE Blood Type Recheck Antibody Screen NEGATIVE 02/18/22 02/18/22 02/18/22 13:00 14:36 15:30 WBC 6.7 RBC 3.49 L Hgb 10.3 L Hct 31.3 L MCV 89.7 MCH 29.5 MCHC 32.9 RDW 15.4 H Plt Count 141 MPV 10.1 Neut # (Auto) Lymph # (Auto) [place] # (Auto) Eos # (Auto) Baso # (Auto) Absolute Nucleated RBC Nucleated RBC % PT INR Sodium Potassium Chloride Carbon Dioxide Anion Gap BUN Creatinine Estimated GFR (MDRD) Glucose Lactic Acid 0.9 Calcium Total Bilirubin AST ALT Alkaline Phosphatase Total Protein Albumin Globulin Albumin/Globulin Ratio Lipase Urine Color LIGHT YELLOW Urine Clarity CLEAR Urine pH 7.5 Ur Specific [place] 1.010 Urine Protein NEGATIVE Urine Glucose (UA) NEGATIVE Urine Ketones NEGATIVE Urine Occult Blood LARGE H Urine Nitrite POSITIVE H Urine Bilirubin NEGATIVE Urine Urobilinogen 0.2 (NORMAL) Ur Leukocyte Esterase NEGATIVE Urine RBC 0-5 Urine WBC 0-3 Ur Squamous Epith Cells RARE Squamous Urine Bacteria Few Ur Microscopic Review INDICATED Urine Culture Comments INDICATED SARS-CoV-2 (PCR) Blood Type Blood Type Recheck Antibody Screen - Rads (name of study) cxr Radiology: Final report received (clear clungs, mild cardiomegaly) CT abd/pelvis Radiology: Final report received (Percutaneously placed aortic valve prosthesis can be seen. Diverticulosis without diverticulitis. No cause of patient's presenting rectal hemorrhage/hematochezia can be seen.) PD MEDICAL DECISION MAKING - ED course Complexity details: reviewed results, re-evaluated patient, considered differential, d/w patient, d/w family ED course: This is a well-appearing 86-year-old female that presents the emergency department for evaluation of acute onset violeta hematochezia that she noticed this morning. She feels that she likely defecated approximately a cup of maroon blood this morning and is continued to have rectal bleeding since. She is anticoagulated on Xarelto for history of atrial fibs/flutter as well as aortic valve replacement. Denies any previous history of rectal bleeding. In review of her labs I do note that she had a hemoglobin Of nearly 13 as well as a crit of 40 that has subsequently dropped to 11.7 and 35 over the last [address] of the abdomen pelvis did not reveal any obvious source of rectal bleeding. She is hemodynamically stable. She most assuredly needs a diagnostic colonoscopy unfortunately we do not have the capability to do that at [facility]. We do not have surgery or surgical staff on-call for the next 48 hours. Thus we will now start looking for transfer. 1520: Spoke with Dr. Yi club concierge through [facility]. We discussed the patient's rectal bleeding which she believes is likely diverticular in nature. However given her extensive cardiac history he does not feel that they would emergently do any colonoscopy or other scoping. He does feel it appropriate to consider admission for further evaluation and management. Again [facility] does not have any surgical services available either today or tomorrow. Her hemoglobin has further dropped here in the emergency department to 10.3 from 11.7 earlier. She is hemodynamically stable otherwise. We will continue to look for further outlying hospitals that may be able to manage this 1545: [facility] transfer center has notified me that they are declining the patient as they are not 100% capacity. I am informed by our health unit aide that [facility], [facility], [facility] have all declined due to lack of bed or staffing capacity. We are awaiting a phone call from [facility]. [facility] has requested that we reach out to the [facility] which I have also requested our health unit aide to do. 1620: Patient has been accepted to [facility] Dr. Morillo is excepting physician. She will go a [facility] when a bed is available. Appropriate COBRA paperwork completed. Patient and her family are notified of impending transfer once a bed is available Departure - Departure Disposition: 02 Transfer Acute Care Hosp Clinical Impression: Hematochezia, Anticoagulated, History of aortic valve replacement, Atrial fibrillation and flutter Condition: Serious
[2022-02-18] MEDS ORDERED: IOPAMIDOL-300 100 ML VIAL ONE (11:52)
[2022-02-18 11:57] LABS: INR 1.9 (0.8-1.2); PT - PROTHROMBIN TIME 20.9 secs (9.9-12.6)
--- NOTE | 2022-02-18 12:03 | XRAY Report ---
PROCEDURE: Chest 1 View X-Ray INDICATIONS: chest pain TECHNIQUE: One view of the chest was acquired. COMPARISON: 06/23/2020 FINDINGS: Surgical changes and devices: A percutaneously placed aortic valve prosthesis can be seen, which lucas s been placed since the prior examination. A pacer device can be seen. The leads are seen in the ex pected positions. Left axillary clips are seen. Lungs and pleura: No pleural effusions or pneumothorax. Lungs are clear. Mediastinum: The aorta is prominent and tortuous. The cardiac contours are mildly enlarged. Bones and chest wall: No suspicious bony lesions. Age-appropriate degenerative changes are seen. S-s haped scoliotic curvature is incidentally noted. Overlying soft tissues appear unremarkable. IMPRESSION: Clear lungs. Mild cardiomegaly. Postoperative and degenerative changes are seen. Reviewed by: Pravin Fonseca MD on 02/18/2022 11:02 AM MARCELINO Approved by: Pravin Fonseca MD on 02/18/2022 11:02 AM MARCELINO Station ID: [id number]
[2022-02-18] MEDS ORDERED: IOPAMIDOL-300 100 ML VIAL IVP ONE (12:06)
--- NOTE | 2022-02-18 12:40 | CT Report ---
PROCEDURE: Abdomen/Pelvis W INDICATIONS: rectal bleeding; hematochezia CONTRAST: IV CONTRAST: Isovue 300 ml: 100 PO CONTRAST: *NO PO CONTRAST TECHNIQUE: After the administration of IV contrast, 5 mm thick sections acquired from the diaphragms to the symp hysis. 5 mm thick coronal and sagittal reformats were acquired. For radiation dose reduction, the f ollowing was used: automated exposure control, adjustment of mA and/or kV according to patient size. COMPARISON: Correlation is made with the overlapping portions of the lumbar spine CT, 01/25/2021. FINDINGS: Image quality: Excellent. ABDOMEN: Lung bases: Lung bases are clear. Heart size is normal. Pacer leads are seen. A percutaneously plac ed aortic valve prosthesis can be seen. Solid organs: Liver and spleen are normal in size and enhancement. Gallbladder wall does not appear thickened. Biliary system is non dilated. Pancreas enhances normally. Mild prominence of the pa ncreatic duct can be seen, measuring up to 4 mm. No adrenal nodules. Kidneys demonstrate normal size and enhancement, without hydronephrosis. Prominent simple appearing left renal cysts are seen, which measure up to 8 cm. Peritoneum and bowel: Bowel loops demonstrate normal wall thickness and caliber. No free fluid or a ir. Diverticulosis can be seen, without violeta findings of active diverticulitis. Nodes and vessels: No retroperitoneal or mesenteric adenopathy by size criteria. Aorta and inferior vena cava are normal in size. Atherosclerotic calcification is seen. Miscellaneous: No ventral hernias. PELVIS: Genitourinary: Bladder wall thickness is normal. Miscellaneous: No inguinal hernias or adenopathy. Bones: No suspicious bony lesions. Mild levoconvex scoliotic curvature is seen. Chronic T12 and L1 compression deformity is again seen. Degenerative changes are again seen throughout. IMPRESSION: To the limits of this CT performed without enteric contrast, no cause of the patient's presenting his tory of rectal bleeding/hematochezia can be seen. Distal colonic diverticulosis is seen, without find ings of active diverticulitis. When clinically appropriate, please consider a colonoscopy for further evaluation. Mild prominence of the pancreatic duct can be seen, 4 mm, without a focal pancreatic abnormality iden tified. Incidental note is made of: Pacer leads Percutaneously placed aortic valve replacement Prominent simple appearing right renal cysts Levoconvex scoliotic curvature Chronic T12 and L1 compression deformities Reviewed by: Pravin Fonseca MD on 02/18/2022 11:39 AM MARCELINO Approved by: Praivn Fonseca MD on 02/18/2022 11:39 AM MARCELINO Station ID: [id number]
[2022-02-18] MEDS ORDERED: SODIUM CHLORIDE 0.9% 1,000 ML IV STA (13:08)
[2022-02-18 13:19] LABS: BILIRUBIN,URINE NEGATIVE (NEGATIVE); GLUCOSE, URINE (UA) NEGATIVE (NEGATIVE); KETONES,URINE (UA) NEGATIVE (NEGATIVE); LEUKOCYTE ESTERASE, URINE NEGATIVE (NEGATIVE); NITRITE,URINE POSITIVE (NEGATIVE); OCCULT BLOOD,URINE LARGE (NEGATIVE); PH,URINE 7.5 PH (5.0-7.5); PROTEIN,URINE NEGATIVE (NEGATIVE); UROBILINOGEN,URINE 0.2 (NORMAL) E.U./dL (NORMAL)
[2022-02-18 13:21] LABS: CLARITY,URINE CLEAR (CLEAR)
[2022-02-18 13:49] LABS: BACTERIA,URINE Few /HPF (None Seen); RBC,URINE 0-5 /HPF (0-5); SQUAMOUS EPITHELIAL CELL,UR RARE Squamous (<= Few); WBC,URINE 0-3 /HPF (0-5)
[2022-02-18 14:39] LABS: HCT - HEMATOCRIT 31.3 % (37.0-47.0); HGB - HEMOGLOBIN 10.3 g/dL (12.0-16.0); MEAN CORPUSCULAR HEMOGLOBIN 29.5 pg (27.0-31.0); MEAN CORPUSCULAR HGB CONC 32.9 g/dL (32.0-36.0); MEAN CORPUSCULAR VOLUME 89.7 fL (81.0-99.0); MEAN PLATELET VOLUME 10.1 fL (7.9-10.8); RED BLOOD COUNT 3.49 10^6/uL (4.20-5.40); RED CELL DISTRIBUTION WIDTH 15.4 % (12.0-15.0); WHITE BLOOD COUNT 6.7 x10^3/uL (4.8-10.8)
[2022-02-18 18:55] VITALS: BP 130/70
== END 2022-02-18 19:25 | disposition short-term general hospital (02) ==
LOC: ED 10:28
DX: K92.1 Melena (principal); I48.91 Unspecified atrial fibrillation; Z79.01 Long term (current) use of anticoagulants; Z95.2 Presence of prosthetic heart valve; Z20.822 Contact with and (suspected) exposure to COVID-19
CPT/HCPCS: 36415; 71045; 74177; 80053; 81001; 83605; 83690; 85025; 85027; 85610; 86850; 86900; 86901; 87086; 87181; 87635; 93005; 99284; 99285; Q9967; 81003

== ENCOUNTER 2022-02-21 06:52 | Inpatient (IN) | payer MEDICARE, OTHER ==
[2022-02-21 07:51] LABS: ALBUMIN 3.1 g/dL (3.2-5.5); ALBUMIN/GLOBULIN RATIO 1.6 (1.0-2.2); BILIRUBIN,TOTAL 0.6 mg/dL (0.2-1.0); CALCIUM 8.4 mg/dL (8.5-10.3); CREATININE 0.7 mg/dL (0.4-1.0); INR 2.3 (0.8-1.2); POTASSIUM 3.6 mmol/L (3.5-5.0)
[2022-02-21 07:53] LABS: BASOPHILS % (AUTO) 0.5 %; EOSINOPHILS # (AUTO) 0.2 10^3/uL (0.0-0.7); EOSINOPHILS % (AUTO) 2.7 %; HCT - HEMATOCRIT 27.3 % (37.0-47.0); HGB - HEMOGLOBIN 8.8 g/dL (12.0-16.0); LYMPHOCYTES # (AUTO) 1.5 10^3/uL (1.5-3.5); LYMPHOCYTES % (AUTO) 21.9 %; MEAN CORPUSCULAR HEMOGLOBIN 29.1 pg (27.0-31.0); MEAN CORPUSCULAR HGB CONC 32.2 g/dL (32.0-36.0); MEAN CORPUSCULAR VOLUME 90.4 fL (81.0-99.0); MONOCYTES # (AUTO) 0.5 10^3/uL (0.0-1.0); MONOCYTES % (AUTO) 7.9 %; NEUTROPHILS # (AUTO) 4.4 10^3/uL (1.5-6.6); NEUTROPHILS % (AUTO) 66.7 %; PLT - PLATELET COUNT 135 10^3/uL (130-450); RED BLOOD COUNT 3.02 10^6/uL (4.20-5.40); RED CELL DISTRIBUTION WIDTH 15.3 % (12.0-15.0); WHITE BLOOD COUNT 6.6 x10^3/uL (4.8-10.8)
[2022-02-21] MEDS ORDERED: SODIUM CHLORIDE 0.9% 1,000 ML IV STA (08:12)
--- NOTE | 2022-02-21 08:19 | ED Physician Documentation ---
History of Present Illness - Stated complaint Stated Complaint: BLEEDING - Chief complaint Chief Complaint: General - History obtained from History obtained from: Patient, Family - Additonal information Additional information: The patient returns to the emergency department with chief complaint of recurrence of GI bleeding. The patient was just seen here on February 18 for GI bleeding and transferred to [facility]. She was evaluated there and discharged a couple of days ago. The patient states that she normally takes Xarelto for her atrial fibrillation, but that She did not take any doses after the bleeding started. She states that her bleeding had stopped prior to her getting to [facility] and that they told her she could get back on the Xarelto starting last night, so she did. Patient states she woke up around 3:00 in the morning which is usual for her, and that at that time, she noticed that she had blood leaking into her Depends. Patient states that since then, she has actually changed her depends 3 times because of the blood. She feels that the blood has stopped coming out now. The patient denies any abdominal pain. No change in her bowel movements. No fevers or chills. She states she did feel somewhat lightheaded when she was up and about, prior to coming in. She is not sure what exactly they diagnosed her with at [facility]. She presents discharge papers that state "upper GI bleed". Review of Systems Ten Systems: 10 systems reviewed and negative Constitutional: reports: Reviewed and negative Eyes: reports: Reviewed and negative Ears: reports: Reviewed and negative Nose: reports: Reviewed and negative Throat: reports: Reviewed and negative Cardiac: reports: Reviewed and negative Respiratory: reports: Reviewed and negative GI: reports: Other (Bright red blood per rectum). denies: Abdominal Pain, Nausea, Vomiting : reports: Reviewed and negative Skin: reports: Reviewed and negative Musculoskeletal: reports: Reviewed and negative Neurologic: reports: Reviewed and negative Psychiatric: reports: Reviewed and negative Endocrine: reports: Reviewed and negative Immunocompromised: reports: Reviewed and negative PD PAST MEDICAL HISTORY - Present Medications Home Medications: Ambulatory Orders Medication Instructions Recorded Confirmed Carvedilol [Coreg] 1 tab PO BID 02/18/22 02/21/22 Cholecalciferol (Vitamin D3) 1 cap PO DAILY 02/18/22 02/21/22 [Vitamin D3] Cyclosporine [Restasis Multidose] 1 drops OP BID 02/18/22 02/21/22 Furosemide [Lasix] 20 mg PO DAILY 02/18/22 02/21/22 Rivaroxaban [Xarelto] 20 mg PO DAILY 02/18/22 02/21/22 Vit A/Vit C/Vit E/Zinc/Copper 1 each PO DAILY 02/18/22 02/21/22 [Preservision Areds Softgel] lisinopriL [Lisinopril] 1 tab PO BID 02/18/22 02/21/22 - Allergies Allergies/Adverse Reactions: Allergies Allergy/AdvReac Type Severity Reaction Status Date / Time Penicillins Allergy Unknown Verified 02/21/22 07:07 PD ED PE NORMAL - Vitals Vital signs reviewed: Yes - General General: Alert and oriented X 3, No acute distress, Well developed/nourished - HEENT HEENT: Atraumatic, PERRL, EOMI, Moist mucous membranes - Neck Neck: Supple, no meningeal sign - Cardiac Cardiac: RRR, No murmur, Strong equal pulses - Respiratory Respiratory: No respiratory distress, Clear bilaterally - Abdomen Abdomen: Soft, Non tender, Non distended - Rectal Rectal: Other (Good anal tone, no masses. Occasional flecks of blood noted on the glove without stool.) - Derm Derm: Normal color, Warm and dry, No rash - Extremities Extremities: No deformity, No edema - Neuro Neuro: Alert and oriented X 3, extrusion press adjuster 2-12 intact, Normal speech - Psych Psych: Normal mood, Normal affect Results - Vitals Vitals: Vital Signs - 24 hr 02/21/22 02/21/22 02/21/22 22:44 22:45 23:00 Temperature 36.7 C 36.7 C 36.7 C Heart Rate 74 74 74 Heart Rate [ Brachial] Respiratory 17 17 17 Rate Blood Pressure 118/54 L 118/54 L 145/110 H Blood Pressure [Left Brachial artery] Blood Pressure [Right Brachial artery] O2 Saturation 02/22/22 02/22/22 02/22/22 00:16 02:36 05:10 Temperature 36.6 C 36.4 C L 36.5 C Heart Rate 64 Heart Rate [ 76 64 80 Brachial] Respiratory 24 20 24 Rate Blood Pressure 137/71 H Blood Pressure 137/63 H [Left Brachial artery] Blood Pressure 136/64 H 137/71 H [Right Brachial artery] O2 Saturation 99 99 98 02/22/22 02/22/22 07:40 13:00 Temperature 36.8 C 36.5 C Heart Rate Heart Rate [ 73 85 Brachial] Respiratory 16 18 Rate Blood Pressure Blood Pressure [Left Brachial artery] Blood Pressure 126/63 120/65 [Right Brachial artery] O2 Saturation 96 96 Oxygen O2 Source Room air - Labs Labs: Laboratory Tests 02/21/22 02/21/22 02/21/22 07:29 07:29 07:29 WBC 6.6 RBC 3.02 L Hgb 8.8 L Hct 27.3 L MCV 90.4 MCH 29.1 MCHC 32.2 RDW 15.3 H Plt Count 135 MPV 11.0 H Neut # (Auto) 4.4 Lymph # (Auto) 1.5 [place] # (Auto) 0.5 Eos # (Auto) 0.2 Baso # (Auto) 0.0 Absolute Nucleated RBC 0.00 Nucleated RBC % 0.0 PT 26.0 H INR 2.3 H Sodium 141 Potassium 3.6 Chloride 105 Carbon Dioxide 28 Anion Gap 8.0 BUN 20 Creatinine 0.7 Estimated GFR (MDRD) 79 L Glucose 134 H Calcium 8.4 L Total Bilirubin 0.6 AST 29 ALT 17 Alkaline Phosphatase 34 L Total Protein 5.0 L Albumin 3.1 L Globulin 1.9 L Albumin/Globulin Ratio 1.6 Lipase 30 Nasal Adenovirus (PCR) Nasal B. parapertussis DNA (PCR) Nasal Coronavir 229E PCR Nasal Coronavir HKU1 PCR Nasal Coronavir NL63 PCR Nasal Coronavir OC43 PCR Nasal Enterovir/Rhinovir PCR Nasal Influenza B PCR Nasal Influenza A PCR Nasal Parainfluen 1 PCR Nasal Parainfluen 2 PCR Nasal Parainfluen 3 PCR Nasal Parainfluen 4 PCR Nasal RSV (PCR) Nasal B.pertussis DNA PCR Nasal C.pneumoniae (PCR) Amor Human Metapneumo PCR Nasal M.pneumoniae (PCR) Nasal SARS-CoV-2 (PCR) Blood Type Antibody Screen Crossmatch IS Only 02/21/22 02/21/22 02/21/22 07:29 12:37 17:03 WBC 8.1 RBC 2.67 L Hgb 7.9 L Hct 24.3 L MCV 91.0 MCH 29.6 MCHC 32.5 RDW 15.0 Plt Count 114 L MPV 11.0 H Neut # (Auto) 5.9 Lymph # (Auto) 1.5 [place] # (Auto) 0.7 Eos # (Auto) 0.1 Baso # (Auto) 0.0 Absolute Nucleated RBC 0.00 Nucleated RBC % 0.0 PT INR Sodium Potassium Chloride Carbon Dioxide Anion Gap BUN Creatinine Estimated GFR (MDRD) Glucose Calcium Total Bilirubin AST ALT Alkaline Phosphatase Total Protein Albumin Globulin Albumin/Globulin Ratio Lipase Nasal Adenovirus (PCR) NOT DETECTED Nasal B. parapertussis DNA (PCR) NOT DETECTED Nasal Coronavir 229E PCR NOT DETECTED Nasal Coronavir HKU1 PCR NOT DETECTED Nasal Coronavir NL63 PCR NOT DETECTED Nasal Coronavir OC43 PCR NOT DETECTED Nasal Enterovir/Rhinovir PCR NOT DETECTED Nasal Influenza B PCR NOT DETECTED Nasal Influenza A PCR NOT DETECTED Nasal Parainfluen 1 PCR NOT DETECTED Nasal Parainfluen 2 PCR NOT DETECTED Nasal Parainfluen 3 PCR NOT DETECTED Nasal Parainfluen 4 PCR NOT DETECTED Nasal RSV (PCR) NOT DETECTED Nasal B.pertussis DNA PCR NOT DETECTED Nasal C.pneumoniae (PCR) NOT DETECTED Amor Human Metapneumo PCR NOT DETECTED Nasal M.pneumoniae (PCR) NOT DETECTED Nasal SARS-CoV-2 (PCR) NOT DETECTED Blood Type A POSITIVE Antibody Screen NEGATIVE Crossmatch IS Only See Detail 02/22/22 02/22/22 02/22/22 05:08 05:08 12:02 WBC 6.6 8.7 RBC 2.87 L 2.89 L Hgb 8.3 L 8.3 L Hct 24.9 L 25.4 L MCV 86.8 87.9 MCH 28.9 28.7 MCHC 33.3 32.7 RDW 17.1 H 17.8 H Plt Count 105 L 128 L MPV 10.6 10.3 Neut # (Auto) 3.9 6.0 Lymph # (Auto) 2.0 1.7 [place] # (Auto) 0.6 0.7 Eos # (Auto) 0.1 0.2 Baso # (Auto) 0.0 0.0 Absolute Nucleated RBC 0.00 0.00 Nucleated RBC % 0.0 0.0 PT INR Sodium 143 Potassium 3.9 Chloride 109 Carbon Dioxide 30 Anion Gap 4.0 L BUN 18 Creatinine 0.7 Estimated GFR (MDRD) 79 L Glucose 121 H Calcium 8.1 L Total Bilirubin AST ALT Alkaline Phosphatase Total Protein Albumin Globulin Albumin/Globulin Ratio Lipase Nasal Adenovirus (PCR) Nasal B. parapertussis DNA (PCR) Nasal Coronavir 229E PCR Nasal Coronavir HKU1 PCR Nasal Coronavir NL63 PCR Nasal Coronavir OC43 PCR Nasal Enterovir/Rhinovir PCR Nasal Influenza B PCR Nasal Influenza A PCR Nasal Parainfluen 1 PCR Nasal Parainfluen 2 PCR Nasal Parainfluen 3 PCR Nasal Parainfluen 4 PCR Nasal RSV (PCR) Nasal B.pertussis DNA PCR Nasal C.pneumoniae (PCR) Amor Human Metapneumo PCR Nasal M.pneumoniae (PCR) Nasal SARS-CoV-2 (PCR) Blood Type Antibody Screen Crossmatch IS Only PD MEDICAL DECISION MAKING - ED course Complexity details: reviewed old records, reviewed results, re-evaluated patient, considered differential, d/w patient ED course: The patient was worked up with labs in the emergency department, and found to have a hemoglobin that had dropped from 10.3 on the to 8.8 today. The patient did not have any obvious bleeding in the emergency department. Her rectal exam revealed tiny flecks of clotted blood but no bloody residue on the glove otherwise. I did receive the records from patient's stay at [facility] and found that yesterday morning on discharge, her hemoglobin was 9.8. She had had a colonoscopy while admitted and it showed diffuse distal colon and rectal diverticuli which were not inflamed and were not actively bleeding. These were felt to likely be the source of the patient's lower GI bleed and no other abnormalities of concern were noted on colonoscopy. The patient had been advised to follow-up with her repairer general to discuss her Xarelto and since she had stopped bleeding, she had been advised to get back on the Xarelto. At this point in time, feel the patient should be admitted for serial H&H's, given that she dropped a gram since yesterday. Since she was symptomatic, I did give her a unit of packed red blood cells. I spoke with Dr. Perez, who is on-call for hospitalist service, and he initially stated he did not feel comfortable admitting the patient. We had a long and extensive discussion about the work-up and consultation had already been done on the patient's very recent admission [facility], in which GI was consulted and did a colonoscopy and did not feel any further intervention was indicated. The patient's bleeding had stopped with the holding of Xarelto. At Dr. Perez's request, we did call at [facility] who stated that they would not even put this patient on the waiting list because she was not ill enough to take priority for transfer and there is nothing more specialized to be done there. Jaimee and Winifred were on out of [facility] and other [facility] hospitals or experiencing extensive waiting times. I spoke with Dr. Perez again, and at this point in time he did agree to come and talk to the patient. Patient was ultimately admitted to his service in stable condition. Departure - Departure Disposition: ED Place in Observation Clinical Impression: Lower GI bleeding Condition: Serious Discharge Date/Time: 02/21/22 13:33
[2022-02-21] MEDS ORDERED: SODIUM CHLORIDE FLUSH 0.9% 10 ML SYRINGE IVP PRN (12:14)
[2022-02-21] MEDS ORDERED: ONDANSETRON 4 MG/2 ML VIAL IVP PRN (12:14)
[2022-02-21] MEDS ORDERED: ACETAMINOPHEN 325 MG TABLET PO PRN (12:14)
--- NOTE | 2022-02-21 12:25 | HISTORY & PHYSICAL EXAMINATION ---
Chief Complaint - Chief Complaint Chief Complaint: GI Bleed History of Present Illness - Admitted From Admitted From:: [facility] ED - History Obtained From Records Reviewed: yes History obtained from: patient - History of Present Illness HPI Comment/Other: Patient is an 86-year-old female with medical history significant for atrial fibrillation on Xarelto, valvular heart disease status post replacement x3, hypertension, hyperlipidemia, breast cancer status post left mastectomy and chemotherapy who presented to the ED with complaint of bright red blood per rectum. Symptoms started around 2 AM today 02/21/2022. 3 days ago she was in the ED with GI bleed. She was transferred to [facility] where she underwent colonoscopy and was noted to have diverticuli bleed. No intervention was undertaken. Her Xarelto was held and over the course of her hospital stay she did not experience any further bleeding. Upon returning home she resumed her Xarelto yesterday 02/20/22. She reports about 4 episodes of bowel movements with blood in. She finally came to the hospital this morning because she was experiencing dizziness. In the ED her hemoglobin was 8.8. 3 days ago it was 10.6. At the time of discharge from [facility] yesterday hemoglobin was 9.6. A unit of packed red blood cells was ordered and initiated in the ED and she was presented for admission for closer monitoring of her hemoglobin. At bedside she was resting comfortably. She denied chest pain, dyspnea, abdominal pain, nausea, vomiting or fever. She complains of feeling cold. She is also hard of hearing. The rest of the history was unremarkable. 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 She is independent of activities of daily living. She gets around using a cane or walking on her own. She does not use tobacco products. She consumes alcohol socially. She does not use any recreational substance. - POLST Patient has POLST: No POLST Status: Full Code Meds/Allgy - Home Medications Home Medications: Ambulatory Orders Medication Instructions Recorded Confirmed Carvedilol [Coreg] 1 tab PO BID 02/18/22 02/21/22 Cholecalciferol (Vitamin D3) 1 cap PO DAILY 02/18/22 02/21/22 [Vitamin D3] Cyclosporine [Restasis Multidose] 1 drops OP BID 02/18/22 02/21/22 Furosemide [Lasix] 20 mg PO DAILY 02/18/22 02/21/22 Rivaroxaban [Xarelto] 20 mg PO DAILY 02/18/22 02/21/22 Vit A/Vit C/Vit E/Zinc/Copper 1 each PO DAILY 02/18/22 02/21/22 [Preservision Areds Softgel] lisinopriL [Lisinopril] 1 tab PO BID 02/18/22 02/21/22 - Allergies Allergies/Adverse Reactions: Allergies Allergy/AdvReac Type Severity Reaction Status Date / Time Penicillins Allergy Unknown Verified 02/21/22 07:07 Review of Systems - Constitutional Constitutional: denies: Fatigue, Fever, Weakness - Eyes Eyes: denies: Pain, Vision loss - Ears, Nose & Throat Ears, Nose & Throat: reports: Hearing aids - Cardiovascular Cariovascular: reports: Irregular heart rate, Lightheadedness. denies: Chest pain, Edema - Respiratory Respiratory: denies: Sputum production, Wheezing, SOB at rest, SOB with exertion - Gastrointestinal Gastrointestinal: reports: Bloody stools. denies: Abdominal pain, Abdominal distention, Constipation, Black stools, Nausea, Vomiting, Reflux/heartburn - Genitourinary Genitourinary: denies: Dysuria, Frequency, Urgency, Hematuria, Incontinence, Flank pain - Musculoskeletal Musculoskeletal: denies: Muscle pain, Back pain, Muscle aches - Integumentary Integumentary: denies: Rash, Pruritis, Lesions, Dryness - Neurological Neurological: denies: General weakness, Focal weakness, Headache, Dizziness - Psychiatric Psychiatric: denies: Depression, Anxiety - Endocrine Endocrine: denies: Polyuria, Polydypsia - Hematologic/Lymphatic Hematologic/Lymphatic: reports: Anemia. denies: Petechiae Prior Level of Functionality: She lives at home with her . She is independent of activities of daily living. She gets around using a cane or walking on her own. She does not use tobacco products. She consumes alcohol socially. She does not use any recreational substance. Exam - Vital Signs Vital Signs: Vital Signs x48h Temp Pulse Pulse Resp BP BP Pulse Ox 02/21/22 11:30 36.0 C L 71 22 130/76 02/21/22 11:25 36.2 C L 62 19 107/82 H 02/21/22 11:20 36.4 C L 61 24 123/67 02/21/22 11:18 36.5 C 66 25 H 107/63 98 02/21/22 11:12 36.5 C 66 24 107/63 02/21/22 11:08 36.2 C L 66 25 H 107/63 98 02/21/22 09:35 72 26 H 115/84 H 98 02/21/22 07:09 66 15 96 02/21/22 07:05 60 18 110/63 96 - Physical Exam General Appearance: positive: No acute distress, Alert Eyes Bilateral: positive: PERRL, EOMI ENT: positive: No signs of dehydration Neck: positive: No JVD, Trachea midline Respiratory: positive: Chest non-tender, No respiratory distress, Breath sounds nml. negative: Wheezes, Rales, Rhonchi Cardiovascular: positive: Irregularly irregular Abdomen: positive: Non-tender, No organomegaly, Nml bowel sounds, No distention. negative: Guarding, Rebound Rectal: positive: Bloody stool Back: positive: Nml inspection. negative: CVA tenderness (R), CVA tenderness (L) Skin: positive: Color nml, No rash, Warm, Dry Extremities: positive: Non-tender, Full ROM, Nml appearance, No pedal edema Neurologic/Psychiatric: positive: Oriented x3, Mood/affect nml Conclusion/Plan - Problem List (1) Lower GI bleeding Conclusion/Plan: Suspected to be secondary to diverticuli bleed. Patient had colonoscopy done 2 days ago at [facility] where she was noted to have diverticular Further intervention was done except for holding her Xarelto. She did not bleed any further over the 2 days of hospital stay. Hemoglobin at time of discharge from [facility] yesterday was 9.6. Hemoglobin upon presentation to the ED today was 8.8. Patient is being transfused 1 unit of packed red blood cells. Will repeat CBC every 12 hours. Will discontinue Xarelto. Given several recurrence of GI bleed whenever she resumes Xarelto patient has been advised she would no longer be a candidate for Xarelto. She has also been advised about her increased risk of a CVA due to not being on the blood thinner given her history of atrial fibrillation, valvular repair x3, hypertension and age. The patient and her expressed understanding. She was advised to take a baby aspirin daily. She was also advised to follow-up with her grinder and honer operator automatic Dr. Chacko in [place] regarding the discontinuation of her Xarelto. The plan of care was discussed with the patient with her at bedside. It was explained that we currently do not have general surgery service and if patient's GI bleed persisted or became profuse there would likely be a delay in transferring her to another facility for surgical evaluation. However transfer at the moment from the emergency department is not possible because there is currently no availability at the facilities that have been contacted by the ED provider. So far the ED provider has reached out to [facility]. Furthermore my expectation is that holding Xarelto 2-3 days, the patient's bleeding should subside. We will further transfuse her as indicated. They expressed understanding and were agreeable to stay at [facility]. Patient's further added that they would not want surgery if it was indicated. (2) Atrial fibrillation and flutter Conclusion/Plan: Controlled. Patient normally takes carvedilol 25 mg p.o. twice daily. However she presented with dizziness due to GI bleeding. Consequently we will hold Coreg for now and resume in the morning when patient's hemodynamics are more stable after blood transfusion. Given several recurrence of GI bleed whenever she resumes Xarelto patient has been advised she would no longer be a candidate for Xarelto. She has also been advised about her increased risk of a CVA due to not being on the blood thinner given her history of atrial fibrillation, valvular repair x3, hypertension and age. The patient and her expressed understanding. She was advised to take a baby aspirin daily. She was also advised to follow-up with her grinder and honer operator automatic Dr. Chacko in [place] regarding the discontinuation of her Xarelto. (3) Hyperlipidemia Conclusion/Plan: Patient reported reaction to statins and is currently not on any medication. (4) Hypertension Conclusion/Plan: Blood pressures currently on the lower end of normal due to GI bleed. Will resume Coreg when appropriate to do so however it has been held for now. (5) History of aortic valve replacement Conclusion/Plan: History of aortic valve replacement x3. Patient has been on Xarelto to date however this is going to be discontinued due to recurrent GI bleed. She is to follow-up with her primary care physician and her grinder and honer operator automatic Dr. Chacko in [place]. She has been advised to take a baby aspirin after discharge - Lab Results Fish Bones: 02/22/22 05:08 02/22/22 05:08 Core Measures - Anticipated LOS I expect patient to be DC'd or transferred within 96 hours.: Yes - DVT/VTE - Prophylaxis VTE/DVT Device ordered at admit?: Yes VTE/DVT Prophylaxis med ordered at admit?: No Not Ordered - Medical Reason: Contraindicated (GI Bleed)
[2022-02-21 13:43] LABS: B. PARAPERTUSSIS- RESP PCR PAN NOT DETECTED; B. PERTUSSIS- RESP PCR PANEL NOT DETECTED; C. PNEUMONIAE- RESP PCR PANEL NOT DETECTED; CORONAVIRUS 229E-RESP PCR NOT DETECTED; CORONAVIRUS HKU1-RESP PCR NOT DETECTED; CORONAVIRUS NL63-RESP PCR NOT DETECTED; CORONAVIRUS OC43-RESP PCR NOT DETECTED; HUMAN METAPNEUMOVIRUS NOT DETECTED; INFLUENZA A- RESP PCR PANEL NOT DETECTED; INFLUENZA B - RESP PCR PANEL NOT DETECTED; M. PNEUMONIAE- RESP PCR PANEL NOT DETECTED; PARAINFLUENZA VIRUS 1 NOT DETECTED; PARAINFLUENZA VIRUS 2 NOT DETECTED; PARAINFLUENZA VIRUS 3 NOT DETECTED; PARAINFLUENZA VIRUS 4 NOT DETECTED; RHINOVIRUS/ENTEROVIRUS NOT DETECTED; RSV- RESP PCR PANEL NOT DETECTED; SARS-CoV-2 -RESP PCR PANEL NOT DETECTED
[2022-02-21] MEDS: SODIUM CHLORIDE FLUSH 0.9% 10 ML SYRINGE IVP SCH (15:45)
[2022-02-21 17:09] LABS: BASOPHILS % (AUTO) 0.4 %; EOSINOPHILS # (AUTO) 0.1 10^3/uL (0.0-0.7); EOSINOPHILS % (AUTO) 0.9 %; HCT - HEMATOCRIT 24.3 % (37.0-47.0); HGB - HEMOGLOBIN 7.9 g/dL (12.0-16.0); LYMPHOCYTES # (AUTO) 1.5 10^3/uL (1.5-3.5); MEAN CORPUSCULAR HEMOGLOBIN 29.6 pg (27.0-31.0); MEAN CORPUSCULAR HGB CONC 32.5 g/dL (32.0-36.0); MONOCYTES # (AUTO) 0.7 10^3/uL (0.0-1.0); MONOCYTES % (AUTO) 8.1 %; NEUTROPHILS # (AUTO) 5.9 10^3/uL (1.5-6.6); NEUTROPHILS % (AUTO) 72.2 %; PLT - PLATELET COUNT 114 10^3/uL (130-450); RED BLOOD COUNT 2.67 10^6/uL (4.20-5.40); WHITE BLOOD COUNT 8.1 x10^3/uL (4.8-10.8)
--- NOTE | 2022-02-21 18:02 | PHARMACY PROGRESS NOTE ---
- Best Possible Medication History Admit Date and Time: 02/21/22 1214 Processed by: Pharmacy Medication History completed: Yes Patient Interview: Completed Secondary Source(s): Spouse/Significant other, Pharmacy records As the person ultimately responsible for medication therapy, providers are able to order a medication from an existing home medication list in [facility] via the "Reconcile Routine" prior to Confirmation of that medication by technical support analyst. Such practice is discouraged except when the physician, in their clinical judgment, deems that a medical need exists for a medication without regard to previous use.
[2022-02-22] MEDS: SODIUM CHLORIDE FLUSH 0.9% 10 ML SYRINGE IVP SCH ×4 (01:57→23:56)
[2022-02-22 05:32] LABS: BASOPHILS % (AUTO) 0.5 %; EOSINOPHILS # (AUTO) 0.1 10^3/uL (0.0-0.7); HCT - HEMATOCRIT 24.9 % (37.0-47.0); HGB - HEMOGLOBIN 8.3 g/dL (12.0-16.0); LYMPHOCYTES % (AUTO) 29.5 %; MEAN CORPUSCULAR HEMOGLOBIN 28.9 pg (27.0-31.0); MEAN CORPUSCULAR HGB CONC 33.3 g/dL (32.0-36.0); MEAN CORPUSCULAR VOLUME 86.8 fL (81.0-99.0); MEAN PLATELET VOLUME 10.6 fL (7.9-10.8); MONOCYTES # (AUTO) 0.6 10^3/uL (0.0-1.0); MONOCYTES % (AUTO) 8.3 %; NEUTROPHILS # (AUTO) 3.9 10^3/uL (1.5-6.6); NEUTROPHILS % (AUTO) 59.2 %; PLT - PLATELET COUNT 105 10^3/uL (130-450); RED BLOOD COUNT 2.87 10^6/uL (4.20-5.40); RED CELL DISTRIBUTION WIDTH 17.1 % (12.0-15.0); WHITE BLOOD COUNT 6.6 x10^3/uL (4.8-10.8)
[2022-02-22 05:47] LABS: CALCIUM 8.1 mg/dL (8.5-10.3); CREATININE 0.7 mg/dL (0.4-1.0); POTASSIUM 3.9 mmol/L (3.5-5.0)
--- NOTE | 2022-02-22 07:12 | PROVIDER PROGRESS NOTE ---
Assessment/Plan - Problem List (1) Lower GI bleeding Assessment/Plan: Patient's hemoglobin this morning was 8.1 despite 3 units of packed red blood cells transfused yesterday. Patient had 3 successive bowel movement with blood clots in them. Systolic blood pressure at time of this event was in the 80s. Will repeat CBC and likely transfuse 2 units of packed red blood cells today. Today is the second day since she last took Xarelto. Anticipating/expecting bleeding to stop as effects of Xarelto wear off. We will continue to monitor patient closely. (2) Atrial fibrillation and flutter Assessment/Plan: Continue to hold Coreg due to potential low blood pressure with GI bleed. Xarelto discontinued. (3) Hyperlipidemia Assessment/Plan: Patient reported reaction to statins and is currently not on any medication. (4) Hypertension Assessment/Plan: Will resume Coreg when appropriate to do so however it has been held for now. (5) History of aortic valve replacement Assessment/Plan: History of aortic valve replacement x3. Patient has been on Xarelto to date however this is going to be discontinued due to recurrent GI bleed. She is to follow-up with her primary care physician and her home care music therapist Dr. Chacko in [place]. She has been advised to take a baby aspirin after discharge - Current Meds Current Meds: Current Medications Generic Name Dose Route Start Last Admin Trade Name Freq PRN Reason Stop Dose Admin Sodium Chloride 10 ml 02/21/22 17:00 02/22/22 01:57 Sodium Chloride Flush 0.9% 10 Ml Syringe IVP 10 ml 0100,0900,1700 BONI Administration - Lab Result Fish Bone Diagrams: 02/22/22 05:08 02/22/22 05:08 - Additional Planning My Orders: My Active Orders 02/21/22 Lunch Cardiac Diet [DIET] 02/21/22 12:14 Activity Orders [RC] Q2HR IO [RC] IOSHIFT Incentive Spirometry - RT [RC] TID Initiate Bowel Care Protocol [RC] .protocol Initiate Line Care Protocol [RC] QSHIFT Initiate Personal Care Protoco [RC] .protocol Oxygen Therapy [RC] .PRN Telemetry- [RC] Q4HR Vital Signs [RC] Q4HR Acetaminophen [Tylenol] 650 mg PO Q4HR PRN Ondansetron Inj [Zofran Inj] 4 mg IVP Q6HR PRN Sodium Chloride Flush 0.9% [Normal Saline Flush 0.9%] 10 ml IVP PRN PRN Code Status [OTHERS] Routine Condition of Patient [OTHERS] Routine DVT Prophylaxis [OTHERS] Routine 02/21/22 12:18 SCDs [RC] QSHIFT 02/21/22 14:19 Orthostatic [Vital Signs - Orthostatic] [RC] QSHIFT 02/21/22 17:00 Sodium Chloride Flush 0.9% [Normal Saline Flush 0.9%] 10 ml IVP 0100,0900,1700 02/21/22 17:39 Transfuse RBCs Leukoreduced [RC] .ONCE 02/22/22 15:00 CBC - COMP BLD CT W/AUTO DIFF [HEME] Timed 02/22/22 21:00 CBC W/O DIFF (HEMOGRAM) [HEME] Q8H 02/23/22 05:00 BMP - BASIC METABOLIC PANEL [CHEM] DAILYLAB CBC W/O DIFF (HEMOGRAM) [HEME] Q8H 02/23/22 13:00 CBC W/O DIFF (HEMOGRAM) [HEME] Q8H 02/24/22 05:00 BMP - BASIC METABOLIC PANEL [CHEM] DAILYLAB Subjective - Subjective Patient Reports: Other (Patient was resting comfortably in bed. She denied any bowel movements with blood overnight. However this morning around 9 AM she had 3 successive bowel movements with blood clots. At the time she felt dizzy and her blood pressure was in the 80s.) Objective Vital Signs: Vital Signs - 24 hr 02/21/22 02/21/22 02/21/22 09:35 11:08 11:12 Temperature 36.2 C L 36.5 C Heart Rate 72 66 Heart Rate [ Brachial] Heart Rate [ 66 Monitoring electrodes] Respiratory 26 H 25 H 24 Rate Blood Pressure 115/84 H 107/63 Blood Pressure [Left Brachial artery] Blood Pressure 107/63 [Right Brachial artery] O2 Saturation 98 98 02/21/22 02/21/22 02/21/22 11:18 11:20 11:25 Temperature 36.5 C 36.4 C L 36.2 C L Heart Rate 66 61 62 Heart Rate [ Brachial] Heart Rate [ Monitoring electrodes] Respiratory 25 H 24 19 Rate Blood Pressure 107/63 123/67 107/82 H Blood Pressure [Left Brachial artery] Blood Pressure [Right Brachial artery] O2 Saturation 98 02/21/22 02/21/22 02/21/22 11:30 13:00 13:50 Temperature 36.0 C L 35.6 C L 36.7 C Heart Rate 71 77 Heart Rate [ Brachial] Heart Rate [ 62 Monitoring electrodes] Respiratory 22 19 16 Rate Blood Pressure 130/76 120/70 Blood Pressure [Left Brachial artery] Blood Pressure 124/66 [Right Brachial artery] O2 Saturation 97 02/21/22 02/21/22 02/21/22 15:32 18:52 19:10 Temperature 36.3 C L 36.3 C L 36.3 C L Heart Rate 61 66 Heart Rate [ 69 Brachial] Heart Rate [ Monitoring electrodes] Respiratory 16 16 18 Rate Blood Pressure 103/56 L 102/59 L Blood Pressure [Left Brachial artery] Blood Pressure 101/54 L [Right Brachial artery] O2 Saturation 99 02/21/22 02/21/22 02/21/22 20:00 22:44 22:45 Temperature 36.7 C 36.7 C 36.7 C Heart Rate 74 74 Heart Rate [ 62 Brachial] Heart Rate [ Monitoring electrodes] Respiratory 24 17 17 Rate Blood Pressure 118/54 L 118/54 L Blood Pressure [Left Brachial artery] Blood Pressure 113/54 L [Right Brachial artery] O2 Saturation 96 02/21/22 02/22/22 02/22/22 23:00 00:16 02:36 Temperature 36.7 C 36.6 C 36.4 C L Heart Rate 74 64 Heart Rate [ 76 64 Brachial] Heart Rate [ Monitoring electrodes] Respiratory 17 24 20 Rate Blood Pressure 145/110 H 137/71 H Blood Pressure [Left Brachial artery] Blood Pressure 136/64 H 137/71 H [Right Brachial artery] O2 Saturation 99 99 02/22/22 05:10 Temperature 36.5 C Heart Rate Heart Rate [ 80 Brachial] Heart Rate [ Monitoring electrodes] Respiratory 24 Rate Blood Pressure Blood Pressure 137/63 H [Left Brachial artery] Blood Pressure [Right Brachial artery] O2 Saturation 98 Oxygen O2 Source Room air I&O (Last 24 Hrs): Intake and Output Totals x24h 02/20/22 02/21/22 02/22/22 23:59 23:59 23:59 Intake Total 2121 540 Balance 2121 540 General: Alert, Oriented x3, No acute distress HEENT: PERRLA, EOMI Neck: Supple, No JVD Neuro: Alert, Oriented Times 3 Cardiovascular: Other (Irregularly irregular heart rate) Respiratory: Chest non-tender, No respiratory distress, Breath sounds nml Abdomen: Normal bowel sounds, Soft, No tenderness Rectal: Bloody Stool Extremities: No clubbing, No cyanosis, No edema, No tenderness/swelling Skin: No rashes, No breakdown, No significant lesion - Results Results: Laboratory Results WBC 6.6 x10^3/uL (4.8-10.8) 02/22/22 05:08 RBC 2.87 10^6/uL (4.20-5.40) L 02/22/22 05:08 Hgb 8.3 g/dL (12.0-16.0) L 02/22/22 05:08 Hct 24.9 % (37.0-47.0) L 02/22/22 05:08 MCV 86.8 fL (81.0-99.0) 02/22/22 05:08 MCH 28.9 pg (27.0-31.0) 02/22/22 05:08 MCHC 33.3 g/dL (32.0-36.0) 02/22/22 05:08 RDW 17.1 % (12.0-15.0) H 02/22/22 05:08 Plt Count 105 10^3/uL (130-450) L 02/22/22 05:08 MPV 10.6 fL (7.9-10.8) 02/22/22 05:08 Neut # (Auto) 3.9 10^3/uL (1.5-6.6) 02/22/22 05:08 Lymph # (Auto) 2.0 10^3/uL (1.5-3.5) 02/22/22 05:08 Barry # (Auto) 0.6 10^3/uL (0.0-1.0) 02/22/22 05:08 Eos # (Auto) 0.1 10^3/uL (0.0-0.7) 02/22/22 05:08 Baso # (Auto) 0.0 10^3/uL (0.0-0.1) 02/22/22 05:08 Absolute Nucleated RBC 0.00 x10^3/uL 02/22/22 05:08 Nucleated RBC % 0.0 /100WBC 02/22/22 05:08 PT 26.0 secs (9.9-12.6) H 02/21/22 07:29 INR 2.3 (0.8-1.2) H 02/21/22 07:29 Sodium 143 mmol/L (135-145) 02/22/22 05:08 Potassium 3.9 mmol/L (3.5-5.0) 02/22/22 05:08 Chloride 109 mmol/L (101-111) 02/22/22 05:08 Carbon Dioxide 30 mmol/L (21-32) 02/22/22 05:08 Anion Gap 4.0 (6-13) L 02/22/22 05:08 BUN 18 mg/dL (6-20) 02/22/22 05:08 Creatinine 0.7 mg/dL (0.4-1.0) 02/22/22 05:08 Estimated GFR (MDRD) 79 (>89) L 02/22/22 05:08 Glucose 121 mg/dL (70-100) H 02/22/22 05:08 Calcium 8.1 mg/dL (8.5-10.3) L 02/22/22 05:08 Total Bilirubin 0.6 mg/dL (0.2-1.0) 02/21/22 07:29 AST 29 IU/L (10-42) 02/21/22 07:29 ALT 17 IU/L (10-60) 02/21/22 07:29 Alkaline Phosphatase 34 IU/L (42-121) L 02/21/22 07:29 Total Protein 5.0 g/dL (6.7-8.2) L 02/21/22 07:29 Albumin 3.1 g/dL (3.2-5.5) L 02/21/22 07:29 Globulin 1.9 g/dL (2.1-4.2) L 02/21/22 07:29 Albumin/Globulin Ratio 1.6 (1.0-2.2) 02/21/22 07:29 Lipase 30 U/L (22-51) 02/21/22 07:29 Nasal Adenovirus (PCR) NOT DETECTED 02/21/22 12:37 Nasal B. parapertussis DNA (PCR) NOT DETECTED 02/21/22 12:37 Nasal Coronavir 229E PCR NOT DETECTED 02/21/22 12:37 Nasal Coronavir HKU1 PCR NOT DETECTED 02/21/22 12:37 Nasal Coronavir NL63 PCR NOT DETECTED 02/21/22 12:37 Nasal Coronavir OC43 PCR NOT DETECTED 02/21/22 12:37 Nasal Enterovir/Rhinovir PCR NOT DETECTED 02/21/22 12:37 Nasal Influenza B PCR NOT DETECTED 02/21/22 12:37 Nasal Influenza A PCR NOT DETECTED 02/21/22 12:37 Nasal Parainfluen 1 PCR NOT DETECTED 02/21/22 12:37 Nasal Parainfluen 2 PCR NOT DETECTED 02/21/22 12:37 Nasal Parainfluen 3 PCR NOT DETECTED 02/21/22 12:37 Nasal Parainfluen 4 PCR NOT DETECTED 02/21/22 12:37 Nasal RSV (PCR) NOT DETECTED 02/21/22 12:37 Nasal B.pertussis DNA PCR NOT DETECTED 02/21/22 12:37 Nasal C.pneumoniae (PCR) NOT DETECTED 02/21/22 12:37 Amor Human Metapneumo PCR NOT DETECTED 02/21/22 12:37 Nasal M.pneumoniae (PCR) NOT DETECTED 02/21/22 12:37 Nasal SARS-CoV-2 (PCR) NOT DETECTED 02/21/22 12:37 Blood Type A POSITIVE 02/21/22 07:29 Antibody Screen NEGATIVE 02/21/22 07:29 Crossmatch IS Only See Detail 02/21/22 07:29 ABX Reporting Has patient been on IV antibiotics over the past 48 hours?: No
[2022-02-22 12:19] LABS: BASOPHILS % (AUTO) 0.5 %; EOSINOPHILS # (AUTO) 0.2 10^3/uL (0.0-0.7); HCT - HEMATOCRIT 25.4 % (37.0-47.0); HGB - HEMOGLOBIN 8.3 g/dL (12.0-16.0); LYMPHOCYTES # (AUTO) 1.7 10^3/uL (1.5-3.5); LYMPHOCYTES % (AUTO) 19.7 %; MEAN CORPUSCULAR HEMOGLOBIN 28.7 pg (27.0-31.0); MEAN CORPUSCULAR HGB CONC 32.7 g/dL (32.0-36.0); MEAN CORPUSCULAR VOLUME 87.9 fL (81.0-99.0); MEAN PLATELET VOLUME 10.3 fL (7.9-10.8); MONOCYTES # (AUTO) 0.7 10^3/uL (0.0-1.0); MONOCYTES % (AUTO) 8.5 %; PLT - PLATELET COUNT 128 10^3/uL (130-450); RED BLOOD COUNT 2.89 10^6/uL (4.20-5.40); RED CELL DISTRIBUTION WIDTH 17.8 % (12.0-15.0); WHITE BLOOD COUNT 8.7 x10^3/uL (4.8-10.8)
[2022-02-22 21:08] LABS: HCT - HEMATOCRIT 23.7 % (37.0-47.0); HGB - HEMOGLOBIN 7.9 g/dL (12.0-16.0); MEAN CORPUSCULAR HEMOGLOBIN 29.2 pg (27.0-31.0); MEAN CORPUSCULAR HGB CONC 33.3 g/dL (32.0-36.0); MEAN CORPUSCULAR VOLUME 87.5 fL (81.0-99.0); MEAN PLATELET VOLUME 10.6 fL (7.9-10.8); RED BLOOD COUNT 2.71 10^6/uL (4.20-5.40); RED CELL DISTRIBUTION WIDTH 18.1 % (12.0-15.0); WHITE BLOOD COUNT 8.5 x10^3/uL (4.8-10.8)
[2022-02-23 05:54] LABS: CALCIUM 8.3 mg/dL (8.5-10.3); CREATININE 0.7 mg/dL (0.4-1.0); POTASSIUM 3.8 mmol/L (3.5-5.0)
[2022-02-23 05:58] LABS: HCT - HEMATOCRIT 24.3 % (37.0-47.0); HGB - HEMOGLOBIN 7.9 g/dL (12.0-16.0); MEAN CORPUSCULAR HEMOGLOBIN 28.8 pg (27.0-31.0); MEAN CORPUSCULAR HGB CONC 32.5 g/dL (32.0-36.0); MEAN CORPUSCULAR VOLUME 88.7 fL (81.0-99.0); MEAN PLATELET VOLUME 10.9 fL (7.9-10.8); RED BLOOD COUNT 2.74 10^6/uL (4.20-5.40); WHITE BLOOD COUNT 7.2 x10^3/uL (4.8-10.8)
[2022-02-23] MEDS: SODIUM CHLORIDE FLUSH 0.9% 10 ML SYRINGE IVP SCH (09:21)
[2022-02-23 14:05] LABS: HCT - HEMATOCRIT 26.6 % (37.0-47.0); HGB - HEMOGLOBIN 8.7 g/dL (12.0-16.0); MEAN CORPUSCULAR HEMOGLOBIN 28.9 pg (27.0-31.0); MEAN CORPUSCULAR HGB CONC 32.7 g/dL (32.0-36.0); MEAN CORPUSCULAR VOLUME 88.4 fL (81.0-99.0); MEAN PLATELET VOLUME 10.2 fL (7.9-10.8); RED BLOOD COUNT 3.01 10^6/uL (4.20-5.40); RED CELL DISTRIBUTION WIDTH 17.4 % (12.0-15.0); WHITE BLOOD COUNT 7.8 x10^3/uL (4.8-10.8)
--- NOTE | 2022-02-23 14:19 | DISCHARGE SUMMARY ---
Discharge Summary Admit Date: 02/21/22 Discharge Date: 02/23/22 Discharging Provider: Susan Perez Primary Care Provider: Sandra Garcia Code Status: Attempt Resuscitation Condition at Discharge: Stable Discharge Disposition: 01 Home, Self Care - DIAGNOSES Admission Diagnoses: Lower GI bleed Atrial fibrillation and flutter Hyperlipidemia Hypertension History of aortic valve replacement Discharge Diagnoses with Status of Each Condition: Lower GI bleed: Acute. Resolved. 2/2 Diverticula Bleeed while on Xarelto. Xarelto discontinued Atrial fibrillation and flutter: Chronic stable. Continue home Coreg Hyperlipidemia: Chronic. Not on any medication Hypertension: Chronic. History of aortic valve replacement - HPI History of Present Illness: Patient is an 86-year-old female with medical history significant for atrial fibrillation on Xarelto, valvular heart disease status post replacement x3, hypertension, hyperlipidemia, breast cancer status post left mastectomy and chemotherapy who presented to the ED with complaint of bright red blood per rectum. Symptoms started around 2 AM today 02/21/2022. 3 days ago she was in the ED with GI bleed. She was transferred to [facility] where she underwent colonoscopy and was noted to have diverticuli bleed. No intervention was undertaken. Her Xarelto was held and over the course of her hospital stay she did not experience any further bleeding. Upon returning home she resumed her Xarelto yesterday 02/20/22. She reports about 4 episodes of bowel movements with blood in. She finally came to the hospital this morning because she was experiencing dizziness. In the ED her hemoglobin was 8.8. 3 days ago it was 10.6. At the time of discharge from [facility] yesterday hemoglobin was 9.6. A unit of packed red blood cells was ordered and initiated in the ED and she was presented for admission for closer monitoring of her hemoglobin. At bedside she was resting comfortably. She denied chest pain, dyspnea, abdominal pain, nausea, vomiting or fever. She complains of feeling cold. She is also hard of hearing. The rest of the history was unremarkable. - HOSPITAL COURSE Hospital Course: The patient was treated in the hospital from to until 02/23/22. Over the course of her hospital stay she received 4 units of packed red blood cells. By the time of discharge her hemoglobin was 8.7. By the time of discharge she had not experienced any more blood in her stool over period of 36 hours. Orthostatics were done prior to discharge and noted to be stable. Systolic Blood pressure was 113/61 supine and 107/57 standing. Patient was instructed to resume her medications the following morning after discharge. She was instructed to stop taking Xarelto. She is to follow-up with her pie filler and/or primary care physician regarding the discontinuation of Xarelto. It was recommended that she may take a baby aspirin daily 1 week from discharge. Her was at bedside they both expressed understanding and agreeable to the plan. - ALLERGIES Allergies/Adverse Reactions: Allergies Allergy/AdvReac Type Severity Reaction Status Date / Time Penicillins Allergy Unknown Verified 02/21/22 07:07 - MEDICATIONS Home Medications: Ambulatory Orders Medication Instructions Recorded Confirmed Carvedilol [Coreg] 1 tab PO BID 02/18/22 02/21/22 Cholecalciferol (Vitamin D3) 1 cap PO DAILY 02/18/22 02/21/22 [Vitamin D3] Cyclosporine [Restasis Multidose] 1 drops OP BID 02/18/22 02/21/22 Furosemide [Lasix] 20 mg PO DAILY 02/18/22 02/21/22 Vit A/Vit C/Vit E/Zinc/Copper 1 each PO DAILY 02/18/22 02/21/22 [Preservision Areds Softgel] lisinopriL [Lisinopril] 1 tab PO BID 02/18/22 02/21/22 - PHYSICAL EXAM AT DISCHARGE General Appearance: positive: No acute distress, Alert Eyes Bilateral: positive: PERRL, EOMI ENT: positive: No signs of dehydration Neck: positive: No JVD, Trachea midline Respiratory: positive: Chest non-tender, No respiratory distress, Breath sounds nml. negative: Wheezes, Rales, Rhonchi Cardiovascular: positive: Irregularly irregular Abdomen: positive: Non-tender, No organomegaly, Nml bowel sounds, No distention. negative: Guarding, Rebound Back: positive: Nml inspection Skin: positive: Color nml, No rash, Warm, Dry Extremities: positive: Non-tender, Full ROM, Nml appearance, No pedal edema Neurologic/Psychiatric: positive: Oriented x3, Mood/affect nml - LABS Result Diagrams: 02/23/22 13:56 02/23/22 05:00 - TIME SPENT Time Spent in Discharge (Minutes): 15
--- NOTE | 2022-02-23 14:23 | Discharge Plan ---
Discharge Plan Problem Reviewed?: Yes Disposition: Home, Self Care Condition: Stable Diet: Cardiac Activity Restrictions: Activity as Tolerated Health Concerns: You were admitted on 02/21/22 for GI bleed which had started earlier in the morning of the same day. You had experienced this 3 days before presenting to the hospital and were transferred to [facility]. You were found to have a diverticular bleed for which no intervention was undertaken. However your Xarelto was held during that hospital stay at [facility]. It is suspected that the recurrent bleed was due to your resuming the Xarelto the day before. During your 2-day hospital stay you were transfused a total of 4 units of packed red blood cells. Over the last 36 hours you have not experienced any further GI bleed. At the time of discharge your hemoglobin is 8.7. You have been able to walk around the medical floor without any difficulties, without shortness of breath or dizziness. Consequently you are being discharged home in stable condition. You are not to take Xarelto anymore due to the risk of bleeding. You may follow-up with your decaler for further discussion about the possibility of being on a baby aspirin or a full dose aspirin given your history of atrial fibrillation, the heart valve repair. This plan was discussed with you, your daughter and your . You are expressed understanding and agreeable with the plan. Consequently you are being discharged. No Smoking: If you smoke, Please STOP! Call for help. Follow-up with: Sandra Garcia MD [Primary Care Provider] -
[2022-02-23] MEDS ORDERED: SODIUM CHLORIDE 0.9% 1,000 ML IV ONE (14:43)
[2022-02-23 15:19] VITALS: BP 132/59
== END 2022-02-23 15:40 | disposition home or self-care (01) | DRG 378 ==
LOC: ED 06:52 → MS2 12:14 → OBSVTOIN 02-22 13:34
PROVIDERS: ADMIT Internal Medicine; ATTEND Internal Medicine
PROC: 30233N1 Transfusion of Nonautologous Red Blood Cells into Peripheral Vein, Percutaneous Approach (ICD-10-PCS; principal; 2022-02-23)
DX: K57.31 Diverticulosis of large intestine without perforation or abscess with bleeding (principal); I48.91 Unspecified atrial fibrillation; I48.20 Chronic atrial fibrillation, unspecified; I48.92 Unspecified atrial flutter; E78.5 Hyperlipidemia, unspecified; I10 Essential (primary) hypertension; Z95.2 Presence of prosthetic heart valve; Z85.3 Personal history of malignant neoplasm of breast; Z90.12 Acquired absence of left breast and nipple; Z20.822 Contact with and (suspected) exposure to COVID-19; H91.90 Unspecified hearing loss, unspecified ear; Z79.01 Long term (current) use of anticoagulants; Z79.899 Other long term (current) drug therapy; Z95.0 Presence of cardiac pacemaker
CPT/HCPCS: 36415; 36430; 80048; 80053; 83690; 85025; 85027; 85610; 86850; 86900; 86901; 86920; 87633; 99284; 99285; G0378; P9016

== ENCOUNTER 2022-02-24 10:58 | Emergency (ER) | payer MEDICARE, OTHER ==
[2022-02-24 11:36] LABS: BASOPHILS % (AUTO) 0.4 %; EOSINOPHILS # (AUTO) 0.1 10^3/uL (0.0-0.7); EOSINOPHILS % (AUTO) 1.8 %; HCT - HEMATOCRIT 22.7 % (37.0-47.0); HGB - HEMOGLOBIN 7.2 g/dL (12.0-16.0); LYMPHOCYTES # (AUTO) 1.4 10^3/uL (1.5-3.5); LYMPHOCYTES % (AUTO) 20.5 %; MEAN CORPUSCULAR HEMOGLOBIN 28.2 pg (27.0-31.0); MEAN CORPUSCULAR HGB CONC 31.7 g/dL (32.0-36.0); MEAN PLATELET VOLUME 9.8 fL (7.9-10.8); MONOCYTES # (AUTO) 0.4 10^3/uL (0.0-1.0); MONOCYTES % (AUTO) 6.3 %; NEUTROPHILS % (AUTO) 70.9 %; PLT - PLATELET COUNT 146 10^3/uL (130-450); RED BLOOD COUNT 2.55 10^6/uL (4.20-5.40); RED CELL DISTRIBUTION WIDTH 18.1 % (12.0-15.0)
--- NOTE | 2022-02-24 11:40 | ED Physician Documentation ---
PD HPI GI BLEED - Stated complaint Stated Complaint: RECTAL BLEEDING/LOW BP - Chief complaint Chief Complaint: Abd Pain - History obtained from History obtained from: Patient - History of Present Illness Timing - onset: Today Timing - duration: Hours Timing - details: Abrupt onset, Still present Associated symptoms: BRBPR Contributing factors: Other (diverticular bleed recent) Improved by: BM Similar symptoms before: Diagnosis (diverticular bleed) Recently seen: Admitted, Transferred - Additional information Additional information: 86-year-old female transferred from the emergency department to [facility] for lower GI bleeding was found to have a diverticular bleed she was taken off her Xarelto with no further treatment was provided. She subsequently came home restarted her Xarelto and then had excessive bleeding again stressed her back to the hospital here where she spent 2 days receiving transfusion she received 4 units of blood had no bleeding for 36 hours and was discharged back to home she has had bleeding this morning again despite not having restarted her Xarelto. She indicates she has had significant output of blood she thinks may be as much as 2 pints. She had 3 separate bowel movements each with significant blood she is feeling lightheaded and dizzy. Review of Systems Constitutional: denies: Fever Eyes: denies: Photophobia Ears: denies: Ear pain Nose: denies: Congestion Throat: denies: Sore throat Cardiac: denies: Chest pain / pressure, Palpitations Respiratory: denies: Dyspnea, Cough GI: reports: Bloody / black stool. denies: Abdominal Pain, Nausea, Vomiting : denies: Dysuria, Frequency Skin: denies: Rash Musculoskeletal: denies: Neck pain, Back pain, Extremity pain Neurologic: reports: Generalized weakness. 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 - Past Surgical History /WAFER BATTER MIXER: Mastectomy (left breast) Cardiovascular: Valve replacement (X3), Pacemaker - Present Medications Home Medications: Ambulatory Orders Medication Instructions Recorded Confirmed Carvedilol [Coreg] 1 tab PO BID 02/18/22 02/21/22 Cholecalciferol (Vitamin D3) 1 cap PO DAILY 02/18/22 02/21/22 [Vitamin D3] Cyclosporine [Restasis Multidose] 1 drops OP BID 02/18/22 02/21/22 Furosemide [Lasix] 20 mg PO DAILY 02/18/22 02/21/22 Vit A/Vit C/Vit E/Zinc/Copper 1 each PO DAILY 02/18/22 02/21/22 [Preservision Areds Softgel] lisinopriL [Lisinopril] 1 tab PO BID 02/18/22 02/21/22 - Allergies Allergies/Adverse Reactions: Allergies Allergy/AdvReac Type Severity Reaction Status Date / Time Penicillins Allergy Unknown Verified 02/24/22 11:09 - Social History Smoking Status: Former smoker - POLST Patient has POLST: No POLST Status: Full Code PD ED PE NORMAL - Vitals Vital signs reviewed: Yes (wide pulse pressure) - General General: Alert and oriented X 3, No acute distress, Well developed/nourished, Other (pale conjunctiva pleasant 86 y/o female ) - HEENT HEENT: Atraumatic, PERRL, EOMI - Neck Neck: Supple, no meningeal sign - Cardiac Cardiac: RRR, Other (holosystolic murmer with machine like quality) - Respiratory Respiratory: No respiratory distress, Clear bilaterally - Abdomen Abdomen: Normal bowel sounds, Soft, Non tender, Non distended - Back Back: No CVA TTP, No spinal TTP - Derm Derm: Normal color, Warm and dry, No rash - Extremities Extremities: No deformity, No edema - Neuro Neuro: Alert and oriented X 3, 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, No motor deficit, No sensory deficit, Normal speech Eye Opening: Spontaneous Motor: Obeys Commands Verbal: Oriented GCS Score: 15 - Psych Psych: Normal mood, Normal affect Results - Vitals Vitals: Vital Signs - 24 hr 02/24/22 02/24/22 02/24/22 11:09 11:29 11:49 Temperature 36.9 C Heart Rate 67 76 71 Respiratory 18 18 18 Rate Blood Pressure 114/53 L 144/79 H 115/67 O2 Saturation 99 96 97 02/24/22 02/24/22 02/24/22 12:14 12:30 12:58 Temperature 36.4 C L Heart Rate 67 77 71 Respiratory 20 22 22 Rate Blood Pressure 112/61 118/66 98/69 O2 Saturation 98 97 02/24/22 02/24/22 02/24/22 13:00 13:07 13:15 Temperature 36.6 C 36.5 C Heart Rate 74 80 75 Respiratory 18 22 22 Rate Blood Pressure 115/70 120/72 112/74 O2 Saturation 100 02/24/22 02/24/22 02/24/22 13:30 14:00 14:30 Temperature Heart Rate 70 64 63 Respiratory 15 12 14 Rate Blood Pressure 120/77 120/77 128/72 O2 Saturation 99 100 97 02/24/22 15:00 Temperature Heart Rate 81 Respiratory 16 Rate Blood Pressure 128/78 O2 Saturation 100 Oxygen O2 Source Room air - Labs Labs: Laboratory Tests 02/24/22 02/24/22 02/24/22 11:31 11:31 11:31 WBC 7.0 RBC 2.55 L Hgb 7.2 L Hct 22.7 L MCV 89.0 MCH 28.2 MCHC 31.7 L RDW 18.1 H Plt Count 146 MPV 9.8 Neut # (Auto) 5.0 Lymph # (Auto) 1.4 L Sac # (Auto) 0.4 Eos # (Auto) 0.1 Baso # (Auto) 0.0 Absolute Nucleated RBC 0.00 Nucleated RBC % 0.0 PT 13.1 H INR 1.2 Sodium Potassium Chloride Carbon Dioxide Anion Gap BUN Creatinine Estimated GFR (MDRD) Glucose Calcium Total Bilirubin AST ALT Alkaline Phosphatase Total Protein Albumin Globulin Albumin/Globulin Ratio Lipase Blood Type A POSITIVE Antibody Screen NEGATIVE Crossmatch IS Only See Detail 02/24/22 11:31 WBC RBC Hgb Hct MCV MCH MCHC RDW Plt Count MPV Neut # (Auto) Lymph # (Auto) Sac # (Auto) Eos # (Auto) Baso # (Auto) Absolute Nucleated RBC Nucleated RBC % PT INR Sodium 141 Potassium 3.9 Chloride 108 Carbon Dioxide 26 Anion Gap 7.0 BUN 19 Creatinine 0.6 Estimated GFR (MDRD) 94 Glucose 113 H Calcium 8.2 L Total Bilirubin 0.6 AST 27 ALT 17 Alkaline Phosphatase 27 L Total Protein 4.5 L Albumin 2.8 L Globulin 1.7 L Albumin/Globulin Ratio 1.6 Lipase 29 Blood Type Antibody Screen Crossmatch IS Only PD MEDICAL DECISION MAKING - ED course Complexity details: reviewed old records, reviewed results, re-evaluated patient, considered differential, d/w patient, d/w family ED course: 86-year-old female with a recent lower GI bleed the exact source which has not been clearly identified is suspected to have 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 She was on Xarelto and this medicine has been stopped 3 days ago. Despite that she has had recurrence of her bleeding. She has been admitted after [facility] 6 days ago and here 3 days ago she received a 4 unit transfusion. Today she presents to the emergency department after having 3 bloody bowel movements in the early hours of the morning and she feels lightheaded and dizzy. Her hemoglobin is low at 7.2 and blood is ordered and administered. I asked our hospitalist to put her back in the hospital here and he was reluctant because we have nothing else to offer the patient and she has had recurrent bleeding requiring multiple transfusions. I was able to contact the service at [facility] and they were able to provide a bed for this patient. I spoke with Dr. Daly hospitalist at . Departure - Departure Disposition: 02 Transfer Acute Care Hosp Clinical Impression: Lower GI bleeding Condition: Serious
[2022-02-24 11:46] LABS: INR 1.2 (0.8-1.2); PT - PROTHROMBIN TIME 13.1 secs (9.9-12.6)
[2022-02-24 11:50] LABS: ALBUMIN 2.8 g/dL (3.2-5.5); ALBUMIN/GLOBULIN RATIO 1.6 (1.0-2.2); BILIRUBIN,TOTAL 0.6 mg/dL (0.2-1.0); CALCIUM 8.2 mg/dL (8.5-10.3); CREATININE 0.6 mg/dL (0.4-1.0); POTASSIUM 3.9 mmol/L (3.5-5.0); TOTAL PROTEIN 4.5 g/dL (6.7-8.2)
[2022-02-24 16:17] LABS: B. PARAPERTUSSIS- RESP PCR PAN NOT DETECTED; B. PERTUSSIS- RESP PCR PANEL NOT DETECTED; C. PNEUMONIAE- RESP PCR PANEL NOT DETECTED; CORONAVIRUS 229E-RESP PCR NOT DETECTED; CORONAVIRUS HKU1-RESP PCR NOT DETECTED; CORONAVIRUS NL63-RESP PCR NOT DETECTED; CORONAVIRUS OC43-RESP PCR NOT DETECTED; HUMAN METAPNEUMOVIRUS NOT DETECTED; INFLUENZA A- RESP PCR PANEL NOT DETECTED; INFLUENZA B - RESP PCR PANEL NOT DETECTED; M. PNEUMONIAE- RESP PCR PANEL NOT DETECTED; PARAINFLUENZA VIRUS 1 NOT DETECTED; PARAINFLUENZA VIRUS 2 NOT DETECTED; PARAINFLUENZA VIRUS 3 NOT DETECTED; PARAINFLUENZA VIRUS 4 NOT DETECTED; RHINOVIRUS/ENTEROVIRUS NOT DETECTED; RSV- RESP PCR PANEL NOT DETECTED; SARS-CoV-2 -RESP PCR PANEL NOT DETECTED
[2022-02-24 17:02] VITALS: BP 116/72
== END 2022-02-24 17:15 | disposition short-term general hospital (02) ==
LOC: ED 10:58
DX: K92.2 Gastrointestinal hemorrhage, unspecified (principal); I10 Essential (primary) hypertension; Z95.0 Presence of cardiac pacemaker; Z95.2 Presence of prosthetic heart valve; Z87.891 Personal history of nicotine dependence; Z20.822 Contact with and (suspected) exposure to COVID-19
CPT/HCPCS: 36415; 36430; 80053; 83690; 85025; 85610; 86850; 86900; 86901; 86920; 87633; 99284; 99285; P9016

== ENCOUNTER 2022-02-24 17:21 | Outpatient (CLI) | payer MEDICARE, OTHER | END 2022-02-24 17:22 | disposition short-term general hospital (02) | LOC: EMS 17:21 | PROVIDERS: ATTEND Emergency Medicine | DX: K92.2 Gastrointestinal hemorrhage, unspecified (principal); D50.0 Iron deficiency anemia secondary to blood loss (chronic) | CPT/HCPCS: A0425; A0428 ==

== ENCOUNTER 2022-03-11 02:10 | Emergency (ER) | payer MEDICARE, OTHER ==
[2022-03-11 02:47] LABS: BASOPHILS % (AUTO) 0.8 %; EOSINOPHILS # (AUTO) 0.2 10^3/uL (0.0-0.7); EOSINOPHILS % (AUTO) 4.3 %; HGB - HEMOGLOBIN 7.2 g/dL (12.0-16.0); LYMPHOCYTES % (AUTO) 18.7 %; MEAN CORPUSCULAR HEMOGLOBIN 28.5 pg (27.0-31.0); MEAN CORPUSCULAR VOLUME 94.9 fL (81.0-99.0); MEAN PLATELET VOLUME 9.3 fL (7.9-10.8); MONOCYTES # (AUTO) 0.5 10^3/uL (0.0-1.0); MONOCYTES % (AUTO) 10.4 %; NEUTROPHILS # (AUTO) 3.3 10^3/uL (1.5-6.6); NEUTROPHILS % (AUTO) 65.4 %; PLT - PLATELET COUNT 184 10^3/uL (130-450); RED BLOOD COUNT 2.53 10^6/uL (4.20-5.40); RED CELL DISTRIBUTION WIDTH 14.8 % (12.0-15.0); WHITE BLOOD COUNT 5.1 x10^3/uL (4.8-10.8)
[2022-03-11 03:16] LABS: INR 2.8 (0.8-1.2); PT - PROTHROMBIN TIME 30.7 secs (9.9-12.6)
[2022-03-11 03:17] LABS: ALBUMIN 2.7 g/dL (3.2-5.5); ALBUMIN/GLOBULIN RATIO 1.4 (1.0-2.2); BILIRUBIN,TOTAL 0.2 mg/dL (0.2-1.0); CALCIUM 8.3 mg/dL (8.5-10.3); CREATININE 0.9 mg/dL (0.4-1.0); POTASSIUM 4.3 mmol/L (3.5-5.0); TOTAL PROTEIN 4.7 g/dL (6.7-8.2)
[2022-03-11 03:23] LABS: PARTIAL THROMBOPLASTIN TIME 42.6 secs (24.9-33.3)
--- NOTE | 2022-03-11 04:06 | ED Physician Documentation ---
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 No: Vomiting, Diarrhea, Constipation, Abdominal pain, Fever, Dizzy, Near syncope / syncope Similar symptoms before: Diagnosis (multiple visits for LGIB) Recently seen: Emergency Dept, Admitted - Additional information Additional information: Patient presents c/o sudden onset LGIB manifest as several bouts of blood per rectum. She says some of the blood appeared bright red and other times it was dark maroon color. She denies any pain. She is on xarelto. Patient was evaluated in this ED 02/18 for same, had hgb 11.7 which dropped to 10.3 while still in ED. She was eventually transferred to [facility]. She was taking xarelto at that time. Patient returned to [facility] ED 02/21 with same c/o. Notes reflect that at she had colonoscopy and a diverticular (colonic) source was suspected as the source of the bleeding although patient says she was under the impression this was not definitive. She was admitted to [facility] on the 02/21 visit, transfused 4 units PRBC and d/c 02/23. She was admitted with 8.8 hgb (was 10.6 few days previous) , discharged after the transfusions with 8.7 hgb. She was discharged home as the bleeding has stopped during ED stay. She was again on xarelto when admitted 02/21 but told to discontinue the xarelto until she d/w her prescribing physician. She returned to [facility] ED 02/24 with same c/o, hgb 7.2 and transferred to . Patient tells me she received at least 4 units of PRBC transfusion during this most recent stay. She has again resumed her xarelto Review of Systems Constitutional: reports: Reviewed and negative Eyes: reports: Reviewed and negative Ears: reports: Reviewed and negative Nose: reports: Reviewed and negative Throat: reports: Reviewed and negative Cardiac: reports: Reviewed and negative Respiratory: reports: Reviewed and negative GI: reports: Bloody / black stool. 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: Mastectomy Cardiovascular: Valve replacement, Pacemaker - Present Medications Home Medications: Ambulatory Orders Medication Instructions Recorded Confirmed Carvedilol [Coreg] 1 tab PO BID 02/18/22 02/21/22 Cholecalciferol (Vitamin D3) 1 cap PO DAILY 02/18/22 02/21/22 [Vitamin D3] Cyclosporine [Restasis Multidose] 1 drops OP BID 02/18/22 02/21/22 Furosemide [Lasix] 20 mg PO DAILY 02/18/22 02/21/22 Vit A/Vit C/Vit E/Zinc/Copper 1 each PO DAILY 02/18/22 02/21/22 [Preservision Areds Softgel] lisinopriL [Lisinopril] 1 tab PO BID 02/18/22 02/21/22 - Allergies Allergies/Adverse Reactions: Allergies Allergy/AdvReac Type Severity Reaction Status Date / Time Penicillins Allergy Unknown Verified 03/11/22 03:32 - Social History Does the pt smoke?: No Smoking Status: Never smoker - POLST Patient has POLST: No POLST Status: Full Code PD ED PE NORMAL - Vitals Vital signs reviewed: Yes - General General: Alert and oriented X 3, No acute distress, Well developed/nourished - HEENT HEENT: Moist mucous membranes - Neck Neck: Supple, no meningeal sign - Respiratory Respiratory: No respiratory distress, Clear bilaterally - Abdomen Abdomen: Soft, Non tender - Derm Derm: Normal color, Warm and dry - Extremities Extremities: No edema - Neuro Neuro: Alert and oriented X 3 PD ED PE EXPANDED - Cardiac Cardiac: Irregularly irregular, Murmur Present (3/6 JESSIE greatest at left 2nd ICS) Results - Vitals Vitals: Vital Signs - 24 hr 03/11/22 03/11/22 03/11/22 02:13 03:11 05:00 Temperature 36.3 C L Heart Rate 26 L 74 74 Respiratory 20 22 20 Rate Blood Pressure 113/56 L O2 Saturation 91 L 98 97 05/22/22 05/22/22 05/22/22 05:57 07:00 07:20 Temperature 36.6 C Heart Rate 66 72 72 Respiratory 17 23 17 Rate Blood Pressure 120/69 119/67 119/67 O2 Saturation 97 99 03/11/22 03/11/22 03/11/22 07:25 07:30 07:35 Temperature 36.6 C 36.8 C Heart Rate 75 80 75 Respiratory 18 20 16 Rate Blood Pressure 133/68 H 98/70 124/58 L O2 Saturation 03/11/22 03/11/22 03/11/22 07:53 08:11 09:13 Temperature Heart Rate 75 74 77 Respiratory 17 18 27 H Rate Blood Pressure 132/68 H 131/82 H O2 Saturation 98 03/11/22 03/11/22 09:33 09:51 Temperature 36.6 C Heart Rate 78 73 Respiratory 21 17 Rate Blood Pressure 142/65 H 97/64 O2 Saturation 100 Oxygen O2 Source Room air - Labs Labs: Laboratory Tests 03/11/22 03/11/22 03/11/22 02:38 02:38 02:57 WBC 5.1 RBC 2.53 L Hgb 7.2 L Hct 24.0 L MCV 94.9 MCH 28.5 MCHC 30.0 L RDW 14.8 Plt Count 184 MPV 9.3 Neut # (Auto) 3.3 Lymph # (Auto) 1.0 L [place] # (Auto) 0.5 Eos # (Auto) 0.2 Baso # (Auto) 0.0 Absolute Nucleated RBC 0.00 Nucleated RBC % 0.0 PT 30.7 H INR 2.8 H APTT 42.6 H Sodium 143 Potassium 4.3 Chloride 110 Carbon Dioxide 27 Anion Gap 6.0 BUN 23 H Creatinine 0.9 Estimated GFR (MDRD) 59 L Glucose 127 H Calcium 8.3 L Total Bilirubin 0.2 AST 21 ALT 16 Alkaline Phosphatase 38 L Total Protein 4.7 L Albumin 2.7 L Globulin 2.0 L Albumin/Globulin Ratio 1.4 Lipase 31 Nasal Adenovirus (PCR) Nasal B. parapertussis DNA (PCR) Nasal Coronavir 229E PCR Nasal Coronavir HKU1 PCR Nasal Coronavir NL63 PCR Nasal Coronavir OC43 PCR Nasal Enterovir/Rhinovir PCR Nasal Influenza B PCR Nasal Influenza A PCR Nasal Parainfluen 1 PCR Nasal Parainfluen 2 PCR Nasal Parainfluen 3 PCR Nasal Parainfluen 4 PCR Nasal RSV (PCR) Nasal B.pertussis DNA PCR Nasal C.pneumoniae (PCR) Amor Human Metapneumo PCR Nasal M.pneumoniae (PCR) Nasal SARS-CoV-2 (PCR) Blood Type Antibody Screen Crossmatch IS Only 03/11/22 03/11/22 05:19 05:54 WBC RBC Hgb Hct MCV MCH MCHC RDW Plt Count MPV Neut # (Auto) Lymph # (Auto) [place] # (Auto) Eos # (Auto) Baso # (Auto) Absolute Nucleated RBC Nucleated RBC % PT INR APTT Sodium Potassium Chloride Carbon Dioxide Anion Gap BUN Creatinine Estimated GFR (MDRD) Glucose Calcium Total Bilirubin AST ALT Alkaline Phosphatase Total Protein Albumin Globulin Albumin/Globulin Ratio Lipase Nasal Adenovirus (PCR) NOT DETECTED Nasal B. parapertussis DNA (PCR) NOT DETECTED Nasal Coronavir 229E PCR NOT DETECTED Nasal Coronavir HKU1 PCR NOT DETECTED Nasal Coronavir NL63 PCR NOT DETECTED Nasal Coronavir OC43 PCR NOT DETECTED Nasal Enterovir/Rhinovir PCR NOT DETECTED Nasal Influenza B PCR NOT DETECTED Nasal Influenza A PCR NOT DETECTED Nasal Parainfluen 1 PCR NOT DETECTED Nasal Parainfluen 2 PCR NOT DETECTED Nasal Parainfluen 3 PCR NOT DETECTED Nasal Parainfluen 4 PCR NOT DETECTED Nasal RSV (PCR) NOT DETECTED Nasal B.pertussis DNA PCR NOT DETECTED Nasal C.pneumoniae (PCR) NOT DETECTED Amor Human Metapneumo PCR NOT DETECTED Nasal M.pneumoniae (PCR) NOT DETECTED Nasal SARS-CoV-2 (PCR) NOT DETECTED Blood Type A POSITIVE Antibody Screen NEGATIVE Crossmatch IS Only See Detail PD MEDICAL DECISION MAKING - ED course Complexity details: reviewed old records, reviewed results, re-evaluated patient, considered differential, d/w patient, d/w family ED course: presents with recurrence of bright red blood and maroon stool per rectum. She had more such episodes during ED stay. Hemoglobin is 7.2 on presentation (same as when she last presented to this ED and was transferred to ). 2 units of PRBC ordered and transfused in ED, she remained stable during my shift and care of patient turned over to Dr. Hogue at end of my shift pending transfer. was contacted and they anticipate they will be able to accept this patient by mid-day.
[2022-03-11 07:05] LABS: B. PARAPERTUSSIS- RESP PCR PAN NOT DETECTED; B. PERTUSSIS- RESP PCR PANEL NOT DETECTED; C. PNEUMONIAE- RESP PCR PANEL NOT DETECTED; CORONAVIRUS 229E-RESP PCR NOT DETECTED; CORONAVIRUS HKU1-RESP PCR NOT DETECTED; CORONAVIRUS NL63-RESP PCR NOT DETECTED; CORONAVIRUS OC43-RESP PCR NOT DETECTED; HUMAN METAPNEUMOVIRUS NOT DETECTED; INFLUENZA A- RESP PCR PANEL NOT DETECTED; INFLUENZA B - RESP PCR PANEL NOT DETECTED; M. PNEUMONIAE- RESP PCR PANEL NOT DETECTED; PARAINFLUENZA VIRUS 1 NOT DETECTED; PARAINFLUENZA VIRUS 2 NOT DETECTED; PARAINFLUENZA VIRUS 3 NOT DETECTED; PARAINFLUENZA VIRUS 4 NOT DETECTED; RHINOVIRUS/ENTEROVIRUS NOT DETECTED; RSV- RESP PCR PANEL NOT DETECTED; SARS-CoV-2 -RESP PCR PANEL NOT DETECTED
[2022-03-11 13:39] LABS: HCT - HEMATOCRIT 22.1 % (37.0-47.0)
[2022-03-11 13:44] LABS: HGB - HEMOGLOBIN 6.8 g/dL (12.0-16.0)
--- NOTE | 2022-03-11 15:22 | ED Physician Documentation ---
ED Addendum - Addendum Addendum: 03/11/22 15:17 86-year-old Mago Nova has returned to the emergency department again today with acute bright red blood per rectum. She is found to be critically anemic and an infusion of packed red blood cells is begun. After her first unit of cells her H&H are worse than her arrival and a second unit is administered. [facility] [place] has been consulted in the case and are willing to take the patient back into their facility for further work-up and treatment. A pparently the patient has had a pulmonary embolism on her imaging done on her initial visit and this is the reason for continuing the patient's anticoagulation. She does have atrial fibrillation she has been using aspirin and was switched to formal anticoagulation and has begun to have difficulty with rectal bleeding since. She has been put back on her anticoagulation each time she has stopped bleeding. She has rebleed each time. She has been switched from Eliquis to Xarelto and still she bled. Today I was able to speak to Dr. Morillo at [facility] who will be accepting in transfer. 03/11/22 15:23 Impression: GI bleeding unstable. Plan: tansfer to [facility].
[2022-03-11 16:58] VITALS: BP 125/68
== END 2022-03-11 17:00 | disposition short-term general hospital (02) ==
LOC: ED 02:10
DX: K92.2 Gastrointestinal hemorrhage, unspecified (principal); Z79.01 Long term (current) use of anticoagulants; I48.91 Unspecified atrial fibrillation; I10 Essential (primary) hypertension; Z20.822 Contact with and (suspected) exposure to COVID-19
CPT/HCPCS: 36415; 36430; 80053; 83690; 85014; 85018; 85025; 85610; 85730; 86850; 86900; 86901; 86920; 87633; 93005; 99283; 99285; P9016

== ENCOUNTER 2022-05-10 07:54 | Outpatient (CLI) | payer MEDICARE, OTHER ==
[2022-05-10 08:10] LABS: BASOPHILS % (AUTO) 0.6 %; EOSINOPHILS # (AUTO) 0.1 10^3/uL (0.0-0.7); EOSINOPHILS % (AUTO) 1.9 %; HCT - HEMATOCRIT 27.2 % (37.0-47.0); HGB - HEMOGLOBIN 7.9 g/dL (12.0-16.0); LYMPHOCYTES # (AUTO) 0.8 10^3/uL (1.5-3.5); MEAN CORPUSCULAR HEMOGLOBIN 23.5 pg (27.0-31.0); MEAN PLATELET VOLUME 9.4 fL (7.9-10.8); MONOCYTES # (AUTO) 0.5 10^3/uL (0.0-1.0); MONOCYTES % (AUTO) 9.8 %; NEUTROPHILS # (AUTO) 3.4 10^3/uL (1.5-6.6); NEUTROPHILS % (AUTO) 71.5 %; PLT - PLATELET COUNT 156 10^3/uL (130-450); RED BLOOD COUNT 3.36 10^6/uL (4.20-5.40); RED CELL DISTRIBUTION WIDTH 16.5 % (12.0-15.0); WHITE BLOOD COUNT 4.7 x10^3/uL (4.8-10.8)
[2022-05-10 08:23] LABS: ALBUMIN 3.4 g/dL (3.2-5.5); ALBUMIN/GLOBULIN RATIO 1.5 (1.0-2.2); BILIRUBIN,TOTAL 0.8 mg/dL (0.2-1.0); CALCIUM 8.8 mg/dL (8.5-10.3); CREATININE 0.8 mg/dL (0.4-1.0); MAGNESIUM 2.1 mg/dL (1.7-2.8); POTASSIUM 4.1 mmol/L (3.5-5.0); TOTAL PROTEIN 5.6 g/dL (6.7-8.2)
== END 2022-05-10 07:55 | disposition home or self-care (01) ==
LOC: LAB 07:54
PROVIDERS: ATTEND Specialist
DX: I48.19 Other persistent atrial fibrillation (principal); I25.10 Atherosclerotic heart disease of native coronary artery without angina pectoris; I10 Essential (primary) hypertension
CPT/HCPCS: 36415; 80053; 83735; 85025

== ENCOUNTER 2022-07-25 08:17 | Outpatient (CLI) | payer MEDICARE, OTHER ==
[2022-07-25 08:36] LABS: CALCIUM 9.1 mg/dL (8.5-10.3); CREATININE 1.1 mg/dL (0.4-1.0)
== END 2022-07-25 08:18 | disposition home or self-care (01) ==
LOC: LAB 08:17
PROVIDERS: ATTEND Specialist
DX: I42.0 Dilated cardiomyopathy (principal)
CPT/HCPCS: 36415; 80048

== ENCOUNTER 2022-10-21 12:34 | Outpatient (CLI) | payer MEDICARE, OTHER | END 2022-10-21 12:35 | disposition short-term general hospital (02) | LOC: EMS 12:34 | DX: R41.0 Disorientation, unspecified (principal); R53.1 Weakness; R53.83 Other fatigue; R06.02 Shortness of breath; R55 Syncope and collapse | CPT/HCPCS: A0425; A0429 ==

== ENCOUNTER 2022-10-24 14:00 | Outpatient (CLI) | payer MEDICARE, OTHER | END 2022-10-24 14:01 | disposition EMS.NT | LOC: EMS 14:00 | DX: R62.7 Adult failure to thrive (principal) ==

== ENCOUNTER 2023-02-02 08:27 | Outpatient (CLI) | payer MEDICARE, OTHER ==
[2023-02-02 08:39] LABS: BASOPHILS % (AUTO) 0.6 %; EOSINOPHILS # (AUTO) 0.2 10^3/uL (0.0-0.7); EOSINOPHILS % (AUTO) 3.7 %; HCT - HEMATOCRIT 39.4 % (37.0-47.0); HGB - HEMOGLOBIN 12.2 g/dL (12.0-16.0); LYMPHOCYTES % (AUTO) 19.5 %; MEAN CORPUSCULAR HEMOGLOBIN 27.8 pg (27.0-31.0); MEAN CORPUSCULAR VOLUME 89.7 fL (81.0-99.0); MEAN PLATELET VOLUME 9.8 fL (7.9-10.8); MONOCYTES # (AUTO) 0.4 10^3/uL (0.0-1.0); NEUTROPHILS # (AUTO) 3.5 10^3/uL (1.5-6.6); PLT - PLATELET COUNT 151 10^3/uL (130-450); RED BLOOD COUNT 4.39 10^6/uL (4.20-5.40); RED CELL DISTRIBUTION WIDTH 18.6 % (12.0-15.0); WHITE BLOOD COUNT 5.1 x10^3/uL (4.8-10.8)
[2023-02-02 08:54] LABS: ALBUMIN 3.9 g/dL (3.2-5.5); ALBUMIN/GLOBULIN RATIO 1.7 (1.0-2.2); CALCIUM 9.3 mg/dL (8.5-10.3); CREATININE 0.9 mg/dL (0.4-1.0); POTASSIUM 4.1 mmol/L (3.5-5.0); TOTAL PROTEIN 6.2 g/dL (6.7-8.2)
== END 2023-02-02 08:28 | disposition home or self-care (01) ==
LOC: LAB 08:27
PROVIDERS: ATTEND Specialist
DX: I48.19 Other persistent atrial fibrillation (principal); I50.32 Chronic diastolic (congestive) heart failure
CPT/HCPCS: 36415; 80053; 83735; 85025

== ENCOUNTER 2023-03-06 08:20 | Outpatient (CLI) | payer MEDICARE, OTHER ==
[2023-03-06 08:55] LABS: BASOPHILS % (AUTO) 0.8 %; EOSINOPHILS # (AUTO) 0.2 10^3/uL (0.0-0.7); EOSINOPHILS % (AUTO) 3.3 %; HCT - HEMATOCRIT 40.7 % (37.0-47.0); HGB - HEMOGLOBIN 12.9 g/dL (12.0-16.0); LYMPHOCYTES # (AUTO) 1.1 10^3/uL (1.5-3.5); LYMPHOCYTES % (AUTO) 21.1 %; MEAN CORPUSCULAR HEMOGLOBIN 28.7 pg (27.0-31.0); MEAN CORPUSCULAR HGB CONC 31.7 g/dL (32.0-36.0); MEAN CORPUSCULAR VOLUME 90.4 fL (81.0-99.0); MEAN PLATELET VOLUME 9.8 fL (7.9-10.8); MONOCYTES # (AUTO) 0.4 10^3/uL (0.0-1.0); MONOCYTES % (AUTO) 7.6 %; NEUTROPHILS # (AUTO) 3.4 10^3/uL (1.5-6.6); PLT - PLATELET COUNT 133 10^3/uL (130-450); RED CELL DISTRIBUTION WIDTH 15.9 % (12.0-15.0); WHITE BLOOD COUNT 5.1 x10^3/uL (4.8-10.8)
== END 2023-03-06 08:21 | disposition home or self-care (01) ==
LOC: LAB 08:20
PROVIDERS: ATTEND Specialist
DX: I48.19 Other persistent atrial fibrillation (principal)
CPT/HCPCS: 36415; 85025

== ENCOUNTER 2023-05-06 08:58 | Outpatient (CLI) | payer MEDICARE, OTHER ==
[2023-05-06 09:21] LABS: BASOPHILS % (AUTO) 0.8 %; EOSINOPHILS # (AUTO) 0.2 10^3/uL (0.0-0.7); EOSINOPHILS % (AUTO) 2.9 %; HCT - HEMATOCRIT 40.4 % (37.0-47.0); HGB - HEMOGLOBIN 13.1 g/dL (12.0-16.0); LYMPHOCYTES # (AUTO) 1.1 10^3/uL (1.5-3.5); LYMPHOCYTES % (AUTO) 21.3 %; MEAN CORPUSCULAR HEMOGLOBIN 29.5 pg (27.0-31.0); MEAN CORPUSCULAR HGB CONC 32.4 g/dL (32.0-36.0); MEAN PLATELET VOLUME 9.1 fL (7.9-10.8); MONOCYTES # (AUTO) 0.4 10^3/uL (0.0-1.0); MONOCYTES % (AUTO) 8.2 %; NEUTROPHILS # (AUTO) 3.4 10^3/uL (1.5-6.6); NEUTROPHILS % (AUTO) 66.6 %; PLT - PLATELET COUNT 142 10^3/uL (130-450); RED BLOOD COUNT 4.44 10^6/uL (4.20-5.40); RED CELL DISTRIBUTION WIDTH 15.7 % (12.0-15.0); WHITE BLOOD COUNT 5.1 x10^3/uL (4.8-10.8)
[2023-05-06 09:40] LABS: ALBUMIN 3.7 g/dL (3.2-5.5); ALBUMIN/GLOBULIN RATIO 1.5 (1.0-2.2); CALCIUM 9.2 mg/dL (8.5-10.3); CREATININE 0.9 mg/dL (0.4-1.0); POTASSIUM 4.5 mmol/L (3.5-5.0); TOTAL PROTEIN 6.2 g/dL (6.7-8.2)
== END 2023-05-06 08:59 | disposition home or self-care (01) ==
LOC: LAB 08:58
PROVIDERS: ATTEND Specialist
DX: I50.32 Chronic diastolic (congestive) heart failure (principal); K92.0 Hematemesis; I48.19 Other persistent atrial fibrillation
CPT/HCPCS: 36415; 80053; 83735; 83880; 85025